=== PATIENT | male | born 1985 | race Caucasian/White ===

== ENCOUNTER 2017-02-11 16:53 | Inpatient (IN) | payer OTHER ==
[~2017-02-11] VITALS: Ht 167.6 cm; Wt 71.4 kg
[~2017-02-11 16:53] MED LIST: ACET-1257 PO; ALBUAER19 INH; DOCU-94 PO; ETOMIDATE 2 MG/ML 20 ML VIAL IV ONE; FEXO1TAB46 PO; FLUO10CA48 PO; FLUO20CA35 PO; FLUT44AE INH; IMD2X PO; MTHL PO; NRN600 PO
[2017-02-11] MEDS ORDERED: SODIUM CHLORIDE 0.9% 1000ML 1,000 ML IV STA ×2 (16:59)
[2017-02-11] MEDS ORDERED: RAPID SEQUENCE INDUCTION BAG ONE (17:03)
[2017-02-11] MEDS ORDERED: NALOXONE HCL 0.4 MG/1 ML VIAL/CARP ONE (17:08)
[2017-02-11] MEDS ORDERED: ONDANSETRON INJ 2 MG/ML 2 ML VIAL ONE (17:16)
[2017-02-11 17:17] LABS: BASO % 0.1 %; BASO ABS # 0.02 K/uL (0-0.2); COMPLETE YES; EOS % 0.2 %; HEMATOCRIT 36.3 % (42-52); IG% 0.4 %; LYMPH % 6.5 %; LYMPH ABS # 1.14 K/uL (1.2-3.4); MEAN CELL VOLUME 91.4 fL (80-100); MEAN CORPUSCULAR HEMOGLOBIN 31.7 pg (25-34); MEAN CORPUSCULAR HGB CONC 34.7 g/dl (32-36); MEAN PLATELET VOLUME 10.9 fL (7.4-10.4); MONO % 5.9 %; NEUT % 86.9 %; PLATELET COUNT 277 K/uL (130-400); RED BLOOD COUNT 3.97 M/uL (4.7-6.1); WHITE BLOOD COUNT 17.41 K/uL (4.8-10.8)
[2017-02-11 17:24] LABS: ISTAT CREATININE 0.8 mg/dl (0.6-1.3); ISTAT HEMOGLOBIN 13.3 g/dl (14.0-18.0); ISTAT IONIZED CALCIUM 1.18 mmol/l (1.12-1.32)
[2017-02-11] MEDS ORDERED: NURSING VERBAL MED ORDER ONE (17:30)
[2017-02-11] MEDS ORDERED: PXL/40 PO (17:34)
[2017-02-11] MEDS ORDERED: BUPR200T2 PO (17:34)
[2017-02-11] MEDS ORDERED: SRQ/50 PO (17:34)
--- NOTE | 2017-02-11 17:36 | DIAGNOSTIC IMAGING REPORT ---
CHEST ONE VIEW PORTABLE CLINICAL HISTORY: Overdose COMPARISON STUDY: 06/20/2014 FINDINGS: There is a poor inspiration. Prominence of interstitial markings may be secondary to hypoventilatory study. There is no focal pulmonary consolidation. There are no pleural effusions. There is no pneumothorax.[ IMPRESSION: 1. Suboptimal inspiration which may explain the prominence of the interstitial markings. No evidence of focal pulmonary consolidation Electronically signed by: Saud Mccoy M.D. 02/11/2017 5:35 PM Dictated Date/Time: 02/11/2017 5:34 PM
[2017-02-11 17:37] LABS: PARTIAL THROMBOPLASTIN RATIO 1.1; PROTHROMBIN TIME (PATIENT) 11.2 SECONDS (9.0-12.0)
[2017-02-11] MEDS ORDERED: METH10CO (17:37)
[2017-02-11] MEDS ORDERED: MTHL PO (17:37)
[2017-02-11 17:38] LABS: ALT/SGPT 32 U/L (12-78); BLOOD UREA NITROGEN 15 mg/dl (7-18); BUN/CREATININE RATIO 15.8 (10-20); CALCIUM 9.3 mg/dl (8.5-10.1); CARBON DIOXIDE 27 mmol/L (21-32); CHLORIDE 104 mmol/L (98-107); CREATININE 0.97 mg/dl (0.60-1.40); GLUCOSE 158 mg/dl (70-99); POTASSIUM 3.5 mmol/L (3.5-5.1); SODIUM 140 mmol/L (136-145)
[2017-02-11] MEDS ORDERED: DICY10CA12 PO (17:41)
[2017-02-11] MEDS ORDERED: OXYB5TAB74 PO (17:41)
[2017-02-11] MEDS ORDERED: FLUT0.15 NAE (17:42)
[2017-02-11] MEDS ORDERED: VNTHFA/IN INH (17:42)
[2017-02-11] MEDS ORDERED: IBUP-1459 PO (17:42)
[2017-02-11 17:43] LABS: ALKALINE PHOSPHATASE 139 U/L (45-117); AST/SGOT 30 U/L (15-37)
[2017-02-11 17:44] LABS: ACETAMINOPHEN < 2 ug/ml (10-30)
[2017-02-11] MEDS ORDERED: NALOXONE HCL 0.4 MG/1 ML VIAL/CARP IV PRN (17:45)
--- NOTE | 2017-02-11 18:05 | DIAGNOSTIC IMAGING REPORT ---
HEAD WITHOUT CONTRAST (CT) CLINICAL HISTORY: 31 years-old Male presenting with AMS. TECHNIQUE: Multidetector CT imaging of the head was performed without the use of intravenous contrast. IV contrast: None. A dose lowering technique was used consistent with the principles of ALARA (as low as reasonably achievable). COMPARISON: 11/29/2007. CT DOSE (mGy.cm): The estimated cumulative dose is 1006.[address] C-spine. FINDINGS: Chemical Educator topogram: Unremarkable. Ventricles and sulci normal in size. Brain parenchyma normal in appearance with preserved mena-white differentiation. No mass effect or midline shift. No hemorrhage or acute territorial infarct. No extra-axial fluid collection. Paranasal sinuses and mastoid air cells clear. Calvarium intact. IMPRESSION: 1. No acute intracranial pathology. Electronically signed by: Ozzy Michelle M.D. 02/11/2017 6:03 PM Dictated Date/Time: 02/11/2017 6:01 PM
--- NOTE | 2017-02-11 18:06 | DIAGNOSTIC IMAGING REPORT ---
CT OF THE CERVICAL SPINE CLINICAL HISTORY: Neck pain. Overdose. Change in mental status. COMPARISON STUDY: 08/05/2007 CT DOSE: 1006.55 mGy.cm TECHNIQUE: CT scan of the cervical spine was performed from the skull base to the thoracic inlet. Images are reviewed in the axial, sagittal, and coronal planes. IV contrast was not administered for this examination. A dose lowering technique was utilized adhering to the principles of ALARA. FINDINGS: The visualized portions of the lung apices reveal no evidence of pneumothorax. The prevertebral soft tissues are normal. No fractures or subluxations are visualized. There are subtle ill-defined nodular opacities within the left lung apex, likely inflammatory/postinflammatory. IMPRESSION: 1. No evidence of acute fracture or traumatic subluxation 2. Subtle ill-defined nodular opacities within the left lung apex likely inflammatory/postinflammatory Electronically signed by: Saud Mccoy M.D. 02/11/2017 6:05 PM Dictated Date/Time: 02/11/2017 6:01 PM
--- NOTE | 2017-02-11 18:10 | Pharmacy Progress Note ---
ED Pharmacist Progress Note Date of Service: Feb 11, 2017. Contacted Poison Control Center and presented patient's case. I had requested that their recommendations be forwarded to us via fax ). pupil personnel worker had recommended 12-24 hours observation. Supportive care with IVF's and PRN small dose Naloxone recommended at this time. Observe patient closely for delayed seizure activity with Wellbutrin SR and Seroquel. If seizures present, recommend treatment w/ benzodiazepines. Sales Contracts Analyst is available for specific questions related to treatment.
[2017-02-11] MEDS ORDERED: NALOXONE HCL INJ 5 MG in SODIUM CHLORIDE 0.9% 100ML 100 ML IV PRN ×2 (18:11→20:30)
[2017-02-11] MEDS ORDERED: VANCOMYCIN INJ 1,500 MG in SODIUM CHLORIDE 0.9% 500ML 500 ML IV STA (18:16)
[2017-02-11] MEDS ORDERED: PIPERACILLIN/TAZOBACTAM 4.5 GM/100ML D5W IV STA (18:16)
[2017-02-11] MEDS ORDERED: AMPICILLIN/SULBACTAM SOD INJ 3,000 MG in SODIUM CHLORIDE 0.9% 100ML 100 ML IV ONE (19:00)
[2017-02-11] MEDS ORDERED: LACTATED RINGER'S 1000ML 1,000 ML IV SCH ×2 (19:45→20:30)
[2017-02-11 20:03] LABS: MAGNESIUM 2.1 mg/dl (1.8-2.4); THYROID STIMULATING HORMONE 1.21 uIu/ml (0.300-4.500)
--- NOTE | 2017-02-11 20:08 | EMERGENCY ROOM VISIT NOTE ---
History Report prepared by Suyapa: Maude Kim Under the Supervision of: Dr. Konstantin Boyle M.D. First contact with patient: 16:59 Chief Complaint: OVERDOSE (ACCIDENTAL) Stated Complaint: SEMI RESPONSIVE, OVERDOSE History of Present Illness The patient is a 31 year old male who presents to the Emergency Room with complaints of a possible overdose. The patient was brought to the ED via EMS. EMS reports his Mother left their home sometime in the morning and when she returned home around 1600, she found him un-responsive on the floor, with blood on his lips, next to an empty Neurontin bottle. The bottle had been filled in December with 90 pills. The patient has a history of drug addiction and is currently taking daily Methadone. His end tidal CO2 was 20 pre-hospital. He is responsive to loud verbal stimuli. The patients other daily medications include Prozac and Gabapentin. He denies any suicidal or homicidal ideations currently. He denies any pain currently. History is limited secondary to mental status. Source of History: family, EMS History Limited By: intoxication Onset: PHOTO CHECKER Position: other (global) Timing: constant Review of Systems Limited secondary to mental status. 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 Family History Depression Psychiatric condition Social History Smoking Status: Unknown if Ever Smoked Alcohol Use: occasionally Drug Use: other (benzodiazepene addiction) Marital Status: Housing Status: lives with family Occupation Status: unemployed Current/Historical Medications Scheduled Albuterol Hfa (Ventolin Hfa), 2-4 PUFFS INH QID Bupropion Hcl (Wellbutrin Sr), 200 MG PO QAM Fluticasone Propionate (Nasal) (Flonase Allergy Relief), 2 SPRAYS RUBI DAILY Gabapentin (Gabapentin), 600 MG PO TID Methadone HCl (Methadone HCl), 120 ML PO DAILY Oxybutynin Chloride (Ditropan), 5 MG PO TID Paroxetine (Paxil), 40 MG PO DAILY Quetiapine Fumarate (Seroquel), 50 MG PO BID Scheduled PRN Dicyclomine Hcl (Dicyclomine Hcl), 10 MG PO QID PRN for GI Upset Ibuprofen (Motrin), 400 MG PO TID PRN for Pain Allergies Coded Allergies: No Known Allergies (Verified , 10/15/12) Physical Exam Vital Signs Date Time Temp Pulse Resp B/P (MAP) Pulse Ox O2 Delivery O2 Flow Rate FiO2 02/11/17 19:35 37.1 84 16 97 Nasal Cannula 02/11/17 19:31 108/65 02/11/17 19:30 84 11 97 Nasal Cannula 02/11/17 19:25 86 11 98 Nasal Cannula 4.0 02/11/17 19:21 109/68 02/11/17 19:20 89 8 100 Nasal Cannula 4.0 02/11/17 19:16 114/73 02/11/17 19:15 94 14 100 Nasal Cannula 4.0 02/11/17 19:11 141/98 02/11/17 19:10 102 24 100 Nasal Cannula 02/11/17 19:06 146/95 02/11/17 19:05 109 23 98 Nasal Cannula 4.0 02/11/17 19:00 112 18 137/93 98 Nasal Cannula 4.0 02/11/17 18:56 127/95 02/11/17 18:55 107 23 100 Nasal Cannula 4.0 02/11/17 18:50 109 20 96 Nasal Cannula 4.0 02/11/17 18:45 122 19 96 Nasal Cannula 02/11/17 18:41 132/82 02/11/17 18:40 96 16 100 Nasal Cannula 4.0 02/11/17 18:36 126/79 02/11/17 18:35 95 10 100 02/11/17 18:35 108 22 126/79 100 Nasal Cannula 4.0 02/11/17 18:31 96 14 130/91 98 Nasal Cannula 4.0 02/11/17 18:24 108 18 134/90 99 Nasal Cannula 4.0 02/11/17 18:10 95 18 133/86 99 Nasal Cannula 4.0 02/11/17 18:02 102 18 150/96 98 Nasal Cannula 4.0 02/11/17 18:01 99 4.0 02/11/17 17:41 108 18 135/95 100 Nasal Cannula 4.0 02/11/17 17:35 110 22 138/96 99 Nasal Cannula 4.0 02/11/17 17:31 106 20 146/91 100 Nasal Cannula 4.0 02/11/17 17:25 102 14 149/103 99 Nasal Cannula 4.0 02/11/17 17:20 105 14 145/98 94 Nasal Cannula 4.0 02/11/17 17:15 110 20 153/95 95 Nasal Cannula 4.0 02/11/17 17:06 102 17 148/90 100 Nasal Cannula 4.0 02/11/17 16:59 98 02/11/17 16:56 Nasal Cannula 4.0 02/11/17 16:56 Nasal Cannula 4.0 02/11/17 16:56 102 20 131/99 14 Nasal Cannula 4.0 Physical Exam GENERAL: The patient appears lethargic and semi-responsive. HENT: Normocephalic, atraumatic. Right upper and right lower lip with dried blood. TM's clear bilaterally. EYES: Pupils 6 mm and reactive. Scattered petechiae around the eyes. Normal conjunctiva. Sclera non-icteric. NECK: Supple. No nuchal rigidity. FROM. No JVD. RESPIRATORY: Clear to auscultation. CARDIAC: Tachycardic heart rate, normal rhythm. Extremities warm and well perfused. Pulses equal. ABDOMEN: Soft, non-distended. No tenderness to palpation. No rebound or guarding. No masses. RECTAL: Deferred. MUSCULOSKELETAL: Chest examination reveals no tenderness. The back is symmetrical on inspection without obvious abnormality. There is no CVA tenderness to palpation. No joint edema. LOWER EXTREMITIES: Diminished DTR in lower extremities. No hyperreflexia, no clonus. Calves are equal size bilaterally and non-tender. No edema. No discoloration. NEURO: Normal sensorium. No sensory or motor deficits noted. SKIN: No rash or jaundice noted. Medical Decision & Procedures ER Provider Diagnostic Interpretation: Radiology results as stated below per my review and radiologist interpretation: CT OF THE CERVICAL SPINE CLINICAL HISTORY: Neck pain. Overdose. Change in mental status. COMPARISON STUDY: 08/05/2007 CT DOSE: 1006.55 mGy.cm TECHNIQUE: CT scan of the cervical spine was performed from the skull base to the thoracic inlet. Images are reviewed in the axial, sagittal, and coronal planes. IV contrast was not administered for this examination. A dose lowering technique was utilized adhering to the principles of ALARA. FINDINGS: The visualized portions of the lung apices reveal no evidence of pneumothorax. The prevertebral soft tissues are normal. No fractures or subluxations are visualized. There are subtle ill-defined nodular opacities within the left lung apex, likely inflammatory/postinflammatory. IMPRESSION: 1. No evidence of acute fracture or traumatic subluxation 2. Subtle ill-defined nodular opacities within the left lung apex likely inflammatory/postinflammatory Electronically signed by: Saud Mccoy M.D. 02/11/2017 6:05 PM HEAD WITHOUT CONTRAST (CT) CLINICAL HISTORY: 31 years-old Male presenting with AMS. TECHNIQUE: Multidetector CT imaging of the head was performed without the use of intravenous contrast. IV contrast: None. A dose lowering technique was used consistent with the principles of ALARA (as low as reasonably achievable). COMPARISON: 11/29/2007. CT DOSE (mGy.cm): The estimated cumulative dose is 1006.[address] C-spine. FINDINGS: Field Placement Director topogram: Unremarkable. Ventricles and sulci normal in size. Brain parenchyma normal in appearance with preserved mena-white differentiation. No mass effect or midline shift. No hemorrhage or acute territorial infarct. No extra-axial fluid collection. Paranasal sinuses and mastoid air cells clear. Calvarium intact. IMPRESSION: 1. No acute intracranial pathology. Electronically signed by: Ozzy Michelle M.D. 02/11/2017 6:03 PM CHEST ONE VIEW PORTABLE CLINICAL HISTORY: Overdose COMPARISON STUDY: 06/20/2014 FINDINGS: There is a poor inspiration. Prominence of interstitial markings may be secondary to hypoventilatory study. There is no focal pulmonary consolidation. There are no pleural effusions. There is no pneumothorax.[ IMPRESSION: 1. Suboptimal inspiration which may explain the prominence of the interstitial markings. No evidence of focal pulmonary consolidation Electronically signed by: Saud Mccoy M.D. 02/11/2017 5:35 PM Laboratory Results 02/11/17 16:51 Red Blood Count 3.97, Mean Corpuscular Volume 91.4, Mean Corpuscular Hemoglobin 31.7, Mean Corpuscular Hemoglobin Concent 34.7, Mean Platelet Volume 10.9, Neutrophils (%) (Auto) 86.9, Lymphocytes (%) (Auto) 6.5, Monocytes (%) (Auto) 5.9, Eosinophils (%) (Auto) 0.2, Basophils (%) (Auto) 0.1, Neutrophils # (Auto) 15.12, Lymphocytes # (Auto) 1.14, Monocytes # (Auto) 1.02, Eosinophils # (Auto) 0.04, Basophils # (Auto) 0.02 02/11/17 16:51 Test 02/11/17 16:51 02/11/17 16:59 02/11/17 17:03 02/11/17 17:10 White Blood Count 17.41 K/uL (4.8-10.8) Red Blood Count 3.97 M/uL (4.7-6.1) Hemoglobin 12.6 g/dL (14.0-18.0) Hematocrit 36.3 % (42-52) Mean Corpuscular Volume 91.4 fL (80-100) Mean Corpuscular Hemoglobin 31.7 pg (25-34) Mean Corpuscular Hemoglobin Concent 34.7 g/dl (32-36) Platelet Count 277 K/uL (130-400) Mean Platelet Volume 10.9 fL (7.4-10.4) Neutrophils (%) (Auto) 86.9 % Lymphocytes (%) (Auto) 6.5 % Monocytes (%) (Auto) 5.9 % Eosinophils (%) (Auto) 0.2 % Basophils (%) (Auto) 0.1 % Neutrophils # (Auto) 15.12 K/uL (1.4-6.5) Lymphocytes # (Auto) 1.14 K/uL (1.2-3.4) Monocytes # (Auto) 1.02 K/uL (0.11-0.59) Eosinophils # (Auto) 0.04 K/uL (0-0.5) Basophils # (Auto) 0.02 K/uL (0-0.2) RDW Standard Deviation 44.1 fL (36.4-46.3) RDW Coefficient of Variation 13.3 % (11.5-14.5) Immature Granulocyte % (Auto) 0.4 % Immature Granulocyte # (Auto) 0.07 K/uL (0.00-0.02) Prothrombin Time 11.2 SECONDS (9.0-12.0) Prothromb Time International Ratio 1.0 (0.9-1.1) Activated Partial Thromboplast Time 29.1 SECONDS (21.0-31.0) Partial Thromboplastin Ratio 1.1 Estimated GFR () 119.2 Estimated GFR (Non- 102.9 BUN/Creatinine Ratio 15.8 (10-20) Osmolality 294 mOsm/kg (280-300) Calcium Level 9.3 mg/dl (8.5-10.1) Total Bilirubin 0.4 mg/dl (0.2-1) Direct Bilirubin < 0.1 mg/dl (0-0.2) Aspartate Amino Transf (AST/SGOT) 30 U/L (15-37) Alanine Aminotransferase (ALT/SGPT) 32 U/L (12-78) Alkaline Phosphatase 139 U/L (45-117) Total Creatine Kinase 270 U/L (39-308) Troponin I < 0.015 ng/ml (0-0.045) Total Protein 8.2 gm/dl (6.4-8.2) Albumin 4.0 gm/dl (3.4-5.0) Lipase 80 U/L (73-393) Salicylates Level < 1.7 mg/dl (2.8-20) Acetaminophen Level < 2 ug/ml (10-30) Ethyl Alcohol mg/dL < 3.0 mg/dl (0-3) Bedside Hemoglobin 13.3 g/dl (14.0-18.0) Bedside Hematocrit 39 % (42-52) Bedside Sodium 142 mEq/L (135-144) Bedside Potassium 3.8 mEq/L (3.3-5.0) Bedside Chloride 104 mEq/L (101-112) Bedside Total CO2 25 mEq/l (24-31) Anion Gap 18.0 mmol/L (16-25) Bedside Blood Urea Nitrogen 16 mg/dl (7-18) Bedside Creatinine 0.8 mg/dl (0.6-1.3) Bedside Glucose (other) 158 mg/dl (70-99) Bedside Ionized Calcium (Isaiah) 1.18 mmol/l (1.12-1.32) Test 02/11/17 17:11 02/11/17 19:35 Bedside Glucose 129 mg/dl (70-99) Laboratory results reviewed by me Medications Administered Medications (Trade) Dose Ordered Sig/Marcelino Route Start Time Stop Time Status Last Admin Dose Admin Sodium Chloride 1,000 ml @ 999 mls/hr Q1H1M STAT IV 02/11/17 16:59 02/11/17 17:59 DC 02/11/17 17:18 999 MLS/HR Sodium Chloride 1,000 ml @ 200 mls/hr Q5H STAT IV 02/11/17 16:59 02/11/17 19:38 DC 02/11/17 16:59 200 MLS/HR Naloxone HCl (Narcan Inj) 0.4 mg STK-MED ONCE .ROUTE 02/11/17 17:08 02/11/17 17:09 DC 02/11/17 17:27 0.4 MG Ondansetron HCl (Zofran Inj) 4 mg STK-MED ONCE .ROUTE 02/11/17 17:16 02/11/17 17:17 DC 02/11/17 17:19 4 MG Naloxone HCl (Narcan Inj) 0.04 mg PRN PRN IV 02/11/17 17:45 03/13/17 17:44 02/11/17 17:39 0.04 MG Naloxone HCl 5 mg/ Sodium Chloride 112.5 ml @ 0 mls/hr Q0M PRN IV 02/11/17 18:11 03/13/17 18:10 02/11/17 18:43 0.8 MLS/HR Vancomycin HCl 1500 mg/Sodium Chloride 530 ml @ 200 mls/hr ONE STAT IV 02/11/17 18:16 02/11/17 20:54 02/11/17 18:55 200 MLS/HR Ampicillin Sodium/ Sulbactam Sodium 3000 mg/Sodium Chloride 108 ml @ 216 mls/hr ONE ONCE IV 02/11/17 19:00 02/11/17 19:29 DC 02/11/17 19:33 216 MLS/HR ECG Indication: toxicologic Rate (beats per minute): 93 Rhythm: normal sinus Findings: nonspecific-ST abn, other (QRS is 90, QTC is 422) ED Course 165: NSS 1000 ml @ 200 mls/hr IV, NSS 1000 ml @ 999 mls/hr IV. 170: The patient was evaluated in room A1. A complete history and physical exam was performed. 1708: Narcan 0.4 mg IV. 1712: Narcan 0.4 mg IV. 1713: I-stat reveals normal chemistry's. 1715: After the second dose of 40 micrograms of IV Narcan, the patients mental status improved. He is awake, confused, but answering basic questions. 1716: Zofran 4 mg IV. 1745: Narcan 0.4 mg IV. 1748: I reevaluated the patient. He is resting but more alert. 1815: Vancomycin HCl 1500 mg/NSS 530 ml @ 200 mls/hr IV, Zosyn 4.5 gm IV. 1810: Naloxone HCl 5 mg/NSS 112.5 ml @ 0 mls/hr IV. 1817: I discussed the patients case with Dr. Hoang, [facility] Toxicology. He agrees with a low dose Narcan drip, and monitoring the patients airway. If he becomes noncholinergic, try a benzodiazepine. If he is still agitated after a benzo, then start treatment with a physostigmine. 1839: I reevaluated patient. His mental status is stable on the Narcan drip. He is still confused and appears anti-cholinergic. 1842: I reevaluated the patient. His Mother has arrived and is at the bedside. She states he was normal at 1000 this morning and notes the patient has been taking Augmentin for a dental infection for the past few days. 1899: Ampicillin Sodium/Sulbactam Sodium 3000 mg/Sodium Chloride 108 ml @ 216 mls/hr IV. 1919: I discussed the patients case with Dr. Kelley, [facility] Hospitalist. The patient will be further evaluated. Medical Decision Prior records/ancillary studies reviewed. Triage Nursing notes reviewed and agree them. Additional history obtained from EMS and the family. The patient's history was concerning for altered mental status and probable overdose. Differential diagnosis: Etiologies such as toxicologic, infection, hypoglycemia, electrolyte abnormalities, cardiac sources, intracerebral event, neurologic, as well as others were entertained. Physical examination: The patient had altered sensorium. Bight oleary to the right lips No other trauma noted. ER treatment provided: IV NSS 1 L bolus IV hydration NSS 200 mL/hr IV Zofran was given 1 as the patient was briefly nauseated after the first dose of Narcan Elevation of head of bed Narcan 40 g boluses PRN due to depressed mental status and respirations with improvement IV Unasyn and IV vancomycin Narcan drip Diagnostic interpretation by me: The electrocardiogram was negative for pathologic change. There was no QRS widening or interval prolongation. The labs revealed a moderate leukocytosis of 17,000. Chemistry panel was unremarkable. LFTs were unremarkable. His Tylenol, salicylate, and alcohol levels were negative. UDS and urinalysis are pending. Blood cultures done. The patient has normal CK and troponin. Renal function normal. Imaging studies: X-ray and CT scans as above. Lung apices were concerning for infectious/ inflammatory findings. The patient presented after what appears to be an overdose. An empty bottle of recently filled gabapentin was present. Family notes that he had some blood on the floor and there was a bite lorie to the lip on the right side, upper and lower. Medication lists were obtained from his primary electronic medical record. He has numerous medications that can result in different toxidromes. He is on several anticholinergic medications. The patient is on a significant dose of methadone. The gabapentin may potentiate the methadone effects. He had no interval prolongation or QRS widening. The patient's mental status improved well enough when the Narcan was given. He was given very small doses as not to precipitate withdrawal. Because of the recurrent need for small doses of Narcan a Narcan drip was initiated at 40 mcg/h and then this was titrated. With the above intervention he was doing well to protect his airway. Consultation: A consultation was placed with Dr. Hoang [facility] toxicology. The case was discussed in detail. He agreed with the Narcan drip and likely poly-pharmacy overdose resulting in anticholinergic findings and an opioid toxidrome. Wellbutrin on his med list could explain the suspected seizure. He did recommend benzodiazepines for any seizure activity or anticholinergic agitation if present. He also noted that the patient may be challenging to monitor is intubated due to the list for seizures and his intubation may be extubation may be challenging due to the multiple toxidromes.A consultation was placed with the [facility] hospitalist. The case was discussed and diagnostics were reviewed. The patient was evaluated in the ER for further treatment. Medication Reconcilliation Current Medication List: was personally reviewed by ar Blood Pressure Screening Patient's blood pressure: Normal blood pressure Blood pressure disposition: Did not require urgent referral Consults Time Called: 1811 Consulting Physician: Dr. Hoang [facility] Returned Call: [phone] I discussed the patients case with Dr. Hoang [facility]. I discussed the patients case with Dr. Hoang [facility]. He agrees with a low dose Narcan drip, and monitoring the patients airway. If he becomes noncholinergic, try a benzodiazepine. If he is still agitated after a benzo, then start treatment with a physostigmine. Additional Consults: Time Called: 1904 Consulted Physician: Andriy Perales Hospitalist Returned Call: 1919 Additional Comments: I discussed the patients case with Andriy Perales. The patient will be further evaluated. Impression Primary Impression: Toxic encephalopathy Additional Impression: Overdose Critical Care I have personally spent greater than 75 minutes of critical care time in the direct management of this patient. This includes bedside care, interpretation of diagnostic studies, and testing, discussion with consultants, patient, and family members, and other required patient management activities. This 75 minutes is in excess of all separately billable procedures. Scribe Attestation The scribe's documentation has been prepared under my direction and personally reviewed by me in its entirety. I confirm that the note above accurately reflects all work, treatment, procedures, and medical decision making performed by me. Departure Information Dispostion Being Evaluated By Hospitalist Referrals Piedad Breen D.O. (PCP) Patient Instructions My [facility] Problem Qualifiers
[2017-02-11 20:29] LABS: ALLEN TEST POS (POS); ARTERIAL BLD GAS O2 SATURATION 90.2 % (90-95); ARTERIAL BLOOD GAS BASE EXCESS -0.9 mEq/L (-9-1.8); ARTERIAL BLOOD GAS HCO3 26 mmol/L (19-24); ARTERIAL BLOOD GAS PO2 70 mm/Hg (80-95); ARTERIAL BLOOD GAS pH 7.31 (7.35-7.45); O2 ADMINISTRATION 4L O2
[2017-02-11 20:30] VITALS: BP_SYST 135; BP_SYST 140; BP_DIAS 80; PULSE 104; PULSE 95; TEMP 36.8; O2SAT 93; O2SAT 97; Ht 167.6 cm; Wt 71.4 kg
[2017-02-11] MEDS ORDERED: IBUPROFEN 200 MG TAB PO PRN (20:30)
[2017-02-11] MEDS ORDERED: ACETAMINOPHEN IV 650 MG in EMPTY BAG 0 ML IV PRN (20:30)
[2017-02-11] MEDS ORDERED: KETOROLAC TROMETHAMINE 30 MG/ML VIAL IV PRN (20:30)
[2017-02-11] MEDS ORDERED: OXYCODONE/ACETAMINOPHEN 5-325 TAB PO PRN (20:30)
[2017-02-11] MEDS ORDERED: ACETAMINOPHEN 325 MG TAB PO PRN (20:30)
[2017-02-11] MEDS ORDERED: ONDANSETRON INJ 2 MG/ML 2 ML VIAL IV PRN (20:30)
[2017-02-12] VITALS (9 sets, daily range): BP systolic 103–129; BP diastolic 54–84; PULSE 72–107; TEMP 36.6–37.4; O2SAT 93–100
[2017-02-12 00:18] LABS: URINE APPEARANCE CLEAR (CLEAR); URINE BILIRUBIN NEG (NEG); URINE COLOR DK YELLOW; URINE NITRITE NEG (NEG); URINE SPECIFIC GRAVITY 1.021 (1.000-1.030); UROBILINOGEN NEG (NEG)
[2017-02-12 00:20] LABS: MANUAL MICROSCOPIC REQUIRED? NO; REVIEW REQ? NO
[2017-02-12] MEDS ORDERED: LEVALBUTEROL/IPRATROPIUM NEB INH STA (00:41)
[2017-02-12] MEDS ORDERED: IPRATROPIUM BROMIDE NEB SOLN 0.02% 2.5 ML VIAL INH STA (00:42)
[2017-02-12] MEDS ORDERED: LEVALBUTEROL 1.25MG/0.5ML NEB INH STA (00:42)
[2017-02-12] MEDS ORDERED: LEVALBUTEROL/IPRATROPIUM NEB INH PRN (00:45)
[2017-02-12] MEDS ORDERED: LEVALBUTEROL 1.25MG/0.5ML NEB INH PRN (00:45)
[2017-02-12] MEDS ORDERED: IPRATROPIUM BROMIDE NEB SOLN 0.02% 2.5 ML VIAL INH PRN (00:45)
[2017-02-12 00:48] LABS: BENZODIAZEPINE, URINE NEG (NEG); COCAINE,URINE NEG (NEG); PHENCYCLIDINE, URINE NEG (NEG)
[2017-02-12] MEDS ORDERED: LACTATED RINGER'S 1000ML 1,000 ML IV SCH (02:00)
[2017-02-12] MEDS ORDERED: LORAZEPAM INJ 1 MG in SYRINGE 0.5 ML IV PRN (02:00)
[2017-02-12] MEDS ORDERED: METHYLPREDNISOLONE IV 20 MG in SYRINGE 0 ML IV ONE (02:45)
[2017-02-12] MEDS ORDERED: PROMETHAZINE HCL INJ 12.5 MG in SODIUM CHLORIDE 0.9% 50ML 50 ML IV PRN (03:00)
--- NOTE | 2017-02-12 03:36 | HISTORY & PHYSICAL EXAMINATION ---
DATE OF ADMISSION: 02/11/2017 PRIMARY CARE DOCTOR: Dr. Piedad Breen. CHIEF COMPLAINT: Possible overdose as per records. HISTORY OF PRESENT ILLNESS: History obtained from the patient's mother, ER physician, records. Unable to obtain from patient secondary to obtunded state. Medical history significant for mood disorder, ADHD, anxiety disorder, hx substance abuse/drug dependence as per records, asthma, hx avascular necrosis as per records, chronic anemia (baseline hemoglobin 13). Recent confinement in September 2014 for benzo withdrawal. Recommendation was to taper off methadone. [facility] Patient seen at PCP's office a few days ago for tooth pain on the right side. Impression was dental infection. The patient prescribed penicillin and ibuprofen. Patient's mother left the patient in a well state at home this morning to go to work. When she came back in the afternoon, she found the patient on the floor, bleeding from the mouth, possibly bit tongue, Minimally responsive but responds to loud verbal stimulation. Empty bottle of Neurontin noted on the floor. At the Emergency Room, some response to Narcan, Narcan drip started. Patient also received vancomycin and Unasyn in the ER w/ incidental note of infiltrates on lung apex on CT neck imaging. Patient's mother unaware of any current personal or chronic pain issues. As per patient's mom, she knows her son takes methadone for some "trouble in his head". She would like him to get off his many medications. MEDICAL HISTORY: As above. SURGERIES: Hip surgery. HOME MEDICATIONS: Include Ventolin, Wellbutrin, dicyclomine, Flonase, ibuprofen, methadone, Ditropan, Paxil, Seroquel. ALLERGIES: No known drug allergies. FAMILY HISTORY: Depression. PERSONAL AND SOCIAL HISTORY: Past tobacco and alcohol abuse, currently disabled. REVIEW OF SYSTEMS: Could not be obtained. PHYSICAL EXAMINATION: VITAL SIGNS: Blood pressure noted to be 131/99, pulse rate 110, RR 16, temperature 37.9, sats 95 on 4 liters. GENERAL: Noted to be obtunded. No respiratory distress. SKIN: Pallor. HEENT: Pale palpebral conjunctivae. Dry mucosa. Nasal cannula in place. NECK: No JVD. Supple. CHEST: Decreased effort. HEART: Tachycardic. ABDOMEN: Soft. EXTREMITIES: No edema, no tenderness. NEUROLOGIC: Obtunded, miotic pupils. LABORATORY DATA: Hemoglobin was noted to be 12.6, hematocrit 38.3, white cell count 17.4, platelets 277. Sodium noted to be 140, potassium 3.5, chloride 104, CO2 of 27, BUN 15, creatinine 0.9, glucose was noted to be 158. ABG; pH 7.39, pCO2 of 52, pO2 of 70 on 4 liters. Urine tox positive for methadone and ecstasy. Alcohol level was less than 3. Chest x-ray, interstitial markings, possibility of hypoventilation. CT of the cervical spine, no evidence of fracture or subluxation, ill-defined nodular opacities, left lung apex post-inflammatory. CT of the head, no acute intracranial pathology. ASSESSMENT: 1. Encephalopathy multifactorial : drug overdose (w/ likely polysubstance interaction), unknown intent. Acute hypoxemic respiratory failure possibly from aspiration pneumonitis. Possible sepsis Rule out seizures with oral bleeding/possible tongue trauma noted. 2. Chronic anemia, hemoglobin at baseline. 3. History of substance abuse/drug dependence as per records 4. ADD as per records 5. hx mood DSO/anxiety DSO. Unknown status. 6. past tobacco abuse. PLAN: PCU Hold neuropsychotropics for now. Narcan drip as per Toxicology recommendations. Review other Toxicology recommendations. May need Psych eval for drug overdose. supplemental O2. Cultures.Unasyn. IV Solu-Medrol for 1 dose now, may benefit from additional steroid Nebs RTC, p.r.n. EEG RE possible seizures, seizure precautions, Ativan when necessary, may need Neurology input TTE RE unwitnessed fall, possible syncope DVT prophylaxis, SCDs re oral trauma. Full code as per mother. She wants her son to be taken off multiple medications at some point due to potential harm. She requests updates from providers. ( Kati Bing Currie at [phone]) [facility]
[2017-02-12] MEDS ORDERED: LORAZEPAM 2 MG/ML 1 ML VIAL IV PRN (03:45)
[2017-02-12] MEDS: AMPICILLIN/SULBACTAM SOD INJ 3,000 MG in SODIUM CHLORIDE 0.9% 100ML 100 ML IV SCH ×4 (05:12→23:02)
[2017-02-12 06:36] LABS: BASO % 0.1 %; BASO ABS # 0.01 K/uL (0-0.2); COMPLETE YES; HEMATOCRIT 32.3 % (42-52); IG% 0.3 %; LYMPH % 5.7 %; LYMPH ABS # 0.67 K/uL (1.2-3.4); MEAN CELL VOLUME 92.6 fL (80-100); MEAN CORPUSCULAR HEMOGLOBIN 30.4 pg (25-34); MEAN CORPUSCULAR HGB CONC 32.8 g/dl (32-36); MEAN PLATELET VOLUME 10.8 fL (7.4-10.4); MONO % 2.7 %; NEUT % 91.2 %; PLATELET COUNT 250 K/uL (130-400); RED BLOOD COUNT 3.49 M/uL (4.7-6.1); WHITE BLOOD COUNT 11.79 K/uL (4.8-10.8)
[2017-02-12] MEDS: IPRATROPIUM BROMIDE NEB SOLN 0.02% 2.5 ML VIAL INH SCH ×4 (07:10→19:28)
[2017-02-12] MEDS: LEVALBUTEROL 1.25MG/0.5ML NEB INH SCH ×4 (07:10→19:28)
[2017-02-12 07:17] LABS: BUN/CREATININE RATIO 13.9 (10-20); CALCIUM 8.6 mg/dl (8.5-10.1); CREATININE 0.69 mg/dl (0.60-1.40); POTASSIUM 3.5 mmol/L (3.5-5.1)
[2017-02-12] MEDS ORDERED: LACTATED RINGER'S 1000ML 1,000 ML IV ONE (08:00)
[2017-02-12] MEDS: FLUTICASONE PROPIONATE NA SPR 16 GM BTL NAE SCH (08:06)
--- NOTE | 2017-02-12 08:57 | ECHOCARDIOGRAM REPORT ---
*NOTICE TO RECEIVING [employer]ENCY This information is strictly Confidential and protected under [place] law. [place] law prohibits you from making any further disclosure of this information unless further disclosure is expressly permitted by the written consent of the person to whom it pertains or is authorized by law. A general authorization for the release of medical or other information is not sufficient for this purpose. Hospital accepts no responsibility if the information is made available to any other person, INCLUDING THE PATIENT. Interpretation Summary * Name: KOLBY LING Study Date: 02/12/2017 07:28 AM BP: 115/73 mmHg * Patient Location: C.2E\S\E210\S\1 HR: 104 * : 1985 (M/d/yyyy) Gender: Male Height: 66 in * Age: 31 yrs Ethnicity: CA Weight: 164 lb * Ordering Physician: Radames Kelley * Referring Physician: Self, Referred * Performed By: Héctor Mckeon RCS * * Reason For Study: Syncope * BSA: 1.8 m2 * This was essentially a normal study. * All chambers of normal size and function * Normal bi-ventricular function * -- Conclusions -- * This was essentially a normal study. * All chambers of normal size and function * Normal bi-ventricular function * No significant valvualr pathology. Procedure Details * A complete two-dimensional transthoracic echocardiogram was performed (2D, M-mode, Doppler and color flow Doppler). Left Ventricle * The left ventricle is normal in size. * Ejection Fraction = >70 %. * Left ventricular systolic function is normal. Right Ventricle * The right ventricle is normal size. * The right ventricular systolic function is normal. Atria * The left atrial size is normal. * Right atrial size is normal. * The interatrial septum is intact with no evidence for an atrial septal defect. Mitral Valve * The mitral valve is normal in structure and function. Tricuspid Valve * The tricuspid valve is normal in structure and function. Aortic Valve * The aortic valve is normal in structure and function. Pulmonic Valve * The pulmonic valve is not well seen, but is grossly normal. * There is no significant pulmonary regurgitation. Great Vessels * The aortic root and proximal ascending aorta are normal sized. Pericardium/Pleural * There is no pericardial effusion. MMode 2D Measurements and Calculations IVSd 1.1 cm IVSs 1.2 cm LVIDd 3.2 cm LVIDs 1.8 cm LVPWd 0.97 cm LVPWs 1.2 cm IVS/LVPW 1.1 FS 44.0 % EDV(Teich) 42.4 ml ESV(Teich) 10.0 ml EF(Teich) 76.5 % EDV(cubed) 34.2 ml ESV(cubed) 6.0 ml EF(cubed) 82.4 % % IVS thick 8.9 % % LVPW thick 19.4 % LV mass(C)d 97.5 grams LV mass(C)dI 53.0 grams/m\S\2 LV mass(C)s 56.4 grams LV mass(C)sI 30.7 grams/m\S\2 SV(Teich) 32.4 ml SI(Teich) 17.6 ml/m\S\2 SV(cubed) 28.2 ml SI(cubed) 15.3 ml/m\S\2 Ao root diam 3.7 cm Ao root area 11.0 cm\S\2 ACS 1.8 cm LA dimension 2.9 cm asc Aorta Diam 2.9 cm LA/Ao 0.78 LVAd ap4 40.3 cm\S\2 LVLd ap4 8.9 cm EDV(MOD-sp4) 147.3 ml EDV(sp4-el) 155.2 ml LVAs ap4 20.2 cm\S\2 LVLs ap4 6.9 cm ESV(MOD-sp4) 51.5 ml ESV(sp4-el) 50.2 ml EF(MOD-sp4) 65.1 % EF(sp4-el) 67.7 % LVAd ap2 33.4 cm\S\2 LVLd ap2 9.1 cm EDV(MOD-sp2) 100.3 ml EDV(sp2-el) 104.1 ml LVAs ap2 15.8 cm\S\2 LVLs ap2 6.4 cm ESV(MOD-sp2) 33.4 ml ESV(sp2-el) 33.2 ml EF(MOD-sp2) 66.7 % EF(sp2-el) 68.0 % LVLd %diff 1.9 % EDV(MOD-bp) 123.3 ml LVLs %diff -7.45 % ESV(MOD-bp) 41.7 ml EF(MOD-bp) 66.1 % SV(MOD-sp4) 95.9 ml SI(MOD-sp4) 52.2 ml/m\S\2 SV(MOD-sp2) 66.9 ml SI(MOD-sp2) 36.4 ml/m\S\2 SV(MOD-bp) 81.5 ml SI(MOD-bp) 44.3 ml/m\S\2 SV(sp4-el) 105.0 ml SI(sp4-el) 57.1 ml/m\S\2 SV(sp2-el) 70.8 ml SI(sp2-el) 38.5 ml/m\S\2 Doppler Measurements and Calculations MV E max vale 131.3 cm/sec MV A max vale 119.4 cm/sec MV E/A 1.1 MV P1/2t max vale 141.5 cm/sec MV P1/2t 67.7 msec MVA(P1/2t) 3.3 cm\S\2 MV dec slope 612.3 cm/sec\S\2 MV dec time 0.26 sec Ao V2 max 164.9 cm/sec Ao max PG 10.9 mmHg Ao max PG (full) 1.7 mmHg LV V1 max PG 9.2 mmHg LV V1 max 151.5 cm/sec PA V2 max 149.5 cm/sec PA max PG 9.0 mmHg TR max vale 185.1 cm/sec
[2017-02-12] MEDS ORDERED: LEVALBUTEROL/IPRATROPIUM NEB INH SCH (09:00)
[2017-02-12] MEDS ORDERED: AMPICILLIN/SULBACTAM CONSULT ACTIVE PRN ×2 (09:00)
[2017-02-12] MEDS: LORAZEPAM 2 MG/ML 1 ML VIAL IV PRN (12:49)
--- NOTE | 2017-02-12 13:24 | Progress Note ---
Medicine Progress Note Date & Time of Visit: Feb 12, 2017 at 12:39. Subjective Pt was seen and examined Lying in bed with no distress Pt is very anxious because he received Narcan because he was unresponsive Pt seems very anxious when i told him that he was given Narcan Pt said that he has been taking phenibut to help him with the anxiety He said that he took a little bit more yesterday Pt said that his pcp and methadone clinic does not know if he is taking the phenibut I called [facility] and all his meds were refill on 01/17, except the oxybutynin that was refill on 02/01 Pt said that he received his methadone at [facility] Denies any chest pain, palpitation, dizziness and SOB Objective Last 8 Hrs Date Time Temp Pulse Resp B/P (MAP) Pulse Ox O2 Delivery O2 Flow Rate FiO2 02/12/17 12:00 Nasal Cannula 02/12/17 08:26 36.6 107 18 103/78 (86) 100 Nasal Cannula 4.0 02/12/17 08:00 Nasal Cannula 02/12/17 07:11 97 14 100 Nasal Cannula 4.0 Physical Exam: General- No acute distress, very anxious Head- atraumatic Eyes- PERRL, EOMI ENT- oropharynx clear Neck- supple, no JVD Lungs-No wheezing Heart- regular rhythm; no murmur Abdomen- normal bowel sounds, soft Extremities- no pretibial edema, no calf tenderness Neuro- alert, oriented x 3; PERRL, EOMI; no facial palsy; no dysarthria; motor 5 /5 bilaterally Skin- warm & dry Laboratory Results: Last 24 Hours Test 02/11/17 16:51 02/11/17 17:03 02/11/17 17:10 02/11/17 17:11 White Blood Count 17.41 K/uL Red Blood Count 3.97 M/uL Hemoglobin 12.6 g/dL Hematocrit 36.3 % Mean Corpuscular Volume 91.4 fL Mean Corpuscular Hemoglobin 31.7 pg Mean Corpuscular Hemoglobin Concent 34.7 g/dl Platelet Count 277 K/uL Mean Platelet Volume 10.9 fL Neutrophils (%) (Auto) 86.9 % Lymphocytes (%) (Auto) 6.5 % Monocytes (%) (Auto) 5.9 % Eosinophils (%) (Auto) 0.2 % Basophils (%) (Auto) 0.1 % Neutrophils # (Auto) 15.12 K/uL Lymphocytes # (Auto) 1.14 K/uL Monocytes # (Auto) 1.02 K/uL Eosinophils # (Auto) 0.04 K/uL Basophils # (Auto) 0.02 K/uL RDW Standard Deviation 44.1 fL RDW Coefficient of Variation 13.3 % Immature Granulocyte % (Auto) 0.4 % Immature Granulocyte # (Auto) 0.07 K/uL Prothrombin Time 11.2 SECONDS Prothromb Time International Ratio 1.0 Activated Partial Thromboplast Time 29.1 SECONDS Partial Thromboplastin Ratio 1.1 Sodium Level 140 mmol/L Potassium Level 3.5 mmol/L Chloride Level 104 mmol/L Carbon Dioxide Level 27 mmol/L Anion Gap 9.0 mmol/L 18.0 mmol/L Blood Urea Nitrogen 15 mg/dl Creatinine 0.97 mg/dl Estimated GFR () 119.2 Estimated GFR (Non- 102.9 BUN/Creatinine Ratio 15.8 Random Glucose 158 mg/dl Osmolality 294 mOsm/kg Calcium Level 9.3 mg/dl Total Bilirubin 0.4 mg/dl Direct Bilirubin < 0.1 mg/dl Aspartate Amino Transf (AST/SGOT) 30 U/L Alanine Aminotransferase (ALT/SGPT) 32 U/L Alkaline Phosphatase 139 U/L Total Creatine Kinase 270 U/L Troponin I < 0.015 ng/ml Total Protein 8.2 gm/dl Albumin 4.0 gm/dl Lipase 80 U/L Procalcitonin 0.10 ng/ml Salicylates Level < 1.7 mg/dl Acetaminophen Level < 2 ug/ml Magnesium Level 2.1 mg/dl Thyroid Stimulating Hormone (TSH) 1.210 uIu/ml Ethyl Alcohol mg/dL < 3.0 mg/dl Bedside Hemoglobin 13.3 g/dl Bedside Hematocrit 39 % Bedside Sodium 142 mEq/L Bedside Potassium 3.8 mEq/L Bedside Chloride 104 mEq/L Bedside Total CO2 25 mEq/l Bedside Blood Urea Nitrogen 16 mg/dl Bedside Creatinine 0.8 mg/dl Bedside Glucose (other) 158 mg/dl Bedside Ionized Calcium (Isaiah) 1.18 mmol/l Bedside Glucose 129 mg/dl Test 02/11/17 20:09 02/12/17 00:00 02/12/17 05:48 Arterial Blood pH 7.31 Arterial Blood Partial Pressure CO2 52 mmHg Arterial Blood Partial Pressure O2 70 mm/Hg Arterial Blood HCO3 26 mmol/L Arterial Blood Oxygen Saturation 90.2 % Arterial Blood Base Excess -0.9 mEq/L Arterial Blood Gas Delivery 4L O2 [place] Test POS Lactic Acid Level 0.5 mmol/L Urine Color DK YELLOW Urine Appearance CLEAR Urine pH 5.0 Urine Specific [place] 1.021 Urine Protein NEG Urine Glucose (UA) NEG Urine Ketones NEG Urine Occult Blood NEG Urine Nitrite NEG Urine Bilirubin NEG Urine Urobilinogen NEG Urine Leukocyte Esterase NEG Urine Opiates Screen NEG Urine Methadone, Qualitative POS Urine Barbiturates NEG Urine Phencyclidine (PCP) Level NEG Ur Amphetamine/Methamphetamine NEG MDMA (Ecstasy) Screen POS Urine Benzodiazepines Screen NEG Urine Cocaine Metabolite NEG Urine Marijuana (THC) NEG White Blood Count 11.79 K/uL Red Blood Count 3.49 M/uL Hemoglobin 10.6 g/dL Hematocrit 32.3 % Mean Corpuscular Volume 92.6 fL Mean Corpuscular Hemoglobin 30.4 pg Mean Corpuscular Hemoglobin Concent 32.8 g/dl Platelet Count 250 K/uL Mean Platelet Volume 10.8 fL Neutrophils (%) (Auto) 91.2 % Lymphocytes (%) (Auto) 5.7 % Monocytes (%) (Auto) 2.7 % Eosinophils (%) (Auto) 0.0 % Basophils (%) (Auto) 0.1 % Neutrophils # (Auto) 10.76 K/uL Lymphocytes # (Auto) 0.67 K/uL Monocytes # (Auto) 0.32 K/uL Eosinophils # (Auto) 0.00 K/uL Basophils # (Auto) 0.01 K/uL RDW Standard Deviation 44.6 fL RDW Coefficient of Variation 13.2 % Immature Granulocyte % (Auto) 0.3 % Immature Granulocyte # (Auto) 0.03 K/uL Sodium Level 145 mmol/L Potassium Level 3.5 mmol/L Chloride Level 111 mmol/L Carbon Dioxide Level 27 mmol/L Anion Gap 7.0 mmol/L Blood Urea Nitrogen 10 mg/dl Creatinine 0.69 mg/dl Est Creatinine Clear Calc Drug Dose 138.6 ml/min Estimated GFR () 145.6 Estimated GFR (Non- 125.6 BUN/Creatinine Ratio 13.9 Random Glucose 120 mg/dl Calcium Level 8.6 mg/dl Date/Time Source Procedure Growth Status 02/11/17 18:53 Blood Blood Culture Pending Received 02/11/17 18:48 Blood Blood Culture Pending Received Assessment & Plan Unresponsive Possible related to drug overdose Need to r/o seizure since blood was found in his lips CT head showed No acute intracranial pathology. Found the gabapentin bottle was empty I called pharmacy and said that Gabapentin was refilled on 01/17 Also Pt has been taking phenibug' he has been taking more Case discussed with poison control recommended symptoms management EEG pending Will continue monitor closely ECHO done * This was essentially a normal study. * All chambers of normal size and function * Normal bi-ventricular function * No significant valvualr pathology. Acute hypoxemic respiratory failure possibly from aspiration pneumonitis CXR showed no evidence of focal pulmonary consolidation WBC trending down, afebrile On Unasyn will repeat cxr and consider to d/c abx Hx of substance abuse Follow with methadone clinic for opioid abuse Case discussed with Dr. Yu from pain management that suggested to decrease the methadone dose on discharge Will notify the methadone clinic Anxiety On gabapentin and wellbutrin has been taking phenibut On ativan prn Advised pt to avoid taking medication online Psych consulted Elevated WBC Possible steroid vs reactivity or aspiration Afebrile WBC trending down On Unasyn Chronic anemia, Stable DVT Px on SCDs CODE STATUS FULL CODE. Consultants: Psych Current Inpatient Medications: Current Inpatient Medications Medications (Trade) Dose Ordered Sig/Marcelino Route Start Time Stop Time Status Last Admin Dose Admin Acetaminophen (Tylenol Tab) 650 mg Q4H PRN PO 02/11/17 20:30 03/13/17 20:29 Lorazepam (Ativan Inj) 0.5 mg Q4H PRN IV 02/11/17 20:30 03/13/17 20:29 Ondansetron HCl (Zofran Inj) 4 mg Q6H PRN IV 02/11/17 20:30 03/13/17 20:29 02/11/17 22:55 4 MG Oxycodone/ Acetaminophen (Percocet 5-325mg Tab) 1 tab Q6H PRN PO 02/11/17 20:30 02/25/17 20:29 Ketorolac Tromethamine (Toradol Inj) 30 mg Q6H PRN IV 02/11/17 20:30 02/16/17 20:29 Ibuprofen (Advil Tab) 400 mg Q6H PRN PO 02/11/17 20:30 03/13/17 20:29 Acetaminophen 650 mg/Empty Bag 65 ml @ 260 mls/hr Q6H PRN IV 02/11/17 20:30 03/13/17 20:29 Fluticasone Propionate (Flonase Nasal [place]) 2 sprays DAILY RUBI 02/12/17 09:00 03/14/17 08:59 02/12/17 08:06 2 SPRAYS Naloxone HCl 5 mg/ Sodium Chloride 112.5 ml @ 0 mls/hr Q0M PRN IV 02/11/17 20:30 03/13/17 20:29 Future Hold Ipratropium Ponder (Atrovent 0.02% 0.5MG/2.5ML Neb) 0.5 mg Q4H PRN INH 02/12/17 00:45 03/14/17 00:44 Levalbuterol (Xopenex 1.25MG/ 0.5ML Neb) 1.25 mg Q4H PRN INH 02/12/17 00:45 03/14/17 00:44 Ampicillin Sodium/ Sulbactam Sodium (Consult) 1 ea UD PRN N/A 02/12/17 09:00 03/14/17 08:59 Lorazepam 1 mg/ Syringe 1 ml @ 0.5 mls/min UD PRN IV 02/12/17 02:00 03/14/17 01:59 Promethazine HCl 12.5 mg/Sodium Chloride 50.5 ml @ 204 mls/hr Q6H PRN IV 02/12/17 03:00 03/14/17 02:59 Lorazepam (Ativan Inj) 1 mg UD PRN IV 02/12/17 03:45 03/14/17 03:44 Ipratropium Ponder (Atrovent 0.02% 0.5MG/2.5ML Neb) 0.5 mg Q6R INH 02/12/17 09:00 03/14/17 08:59 02/12/17 07:10 0.5 MG Levalbuterol (Xopenex 1.25MG/ 0.5ML Neb) 1.25 mg Q6R INH 02/12/17 09:00 03/14/17 08:59 02/12/17 07:10 1.25 MG Ampicillin Sodium/ Sulbactam Sodium 3000 mg/Sodium Chloride 108 ml @ 216 mls/hr Q6H IV 02/12/17 05:00 02/19/17 04:59 02/12/17 12:01 216 MLS/HR Lactated Ringer's 1,000 ml @ 75 mls/hr [id number] ONCE IV 02/12/17 08:00 03/13/17 19:44 02/12/17 08:07 75 MLS/HR
--- NOTE | 2017-02-12 14:14 | EEG Procedure Note ---
EEG Procedure Note Date of Service Feb 12, 2017. Start / End Times Start Time: 1124 End Time: [address] Kelley History 31 yea old with probable overdose and suspected seizure Home Medication List Scheduled Albuterol Hfa (Ventolin Hfa), 2-4 PUFFS INH QID Bupropion Hcl (Wellbutrin Sr), 200 MG PO QAM Fluticasone Propionate (Nasal) (Flonase Allergy Relief), 2 SPRAYS RUBI DAILY Gabapentin (Gabapentin), 600 MG PO TID Methadone HCl (Methadone HCl), 120 ML PO DAILY Oxybutynin Chloride (Ditropan), 5 MG PO TID Paroxetine (Paxil), 40 MG PO DAILY Quetiapine Fumarate (Seroquel), 50 MG PO BID Scheduled PRN Dicyclomine Hcl (Dicyclomine Hcl), 10 MG PO QID PRN for GI Upset Ibuprofen (Motrin), 400 MG PO TID PRN for Pain Inpatient Medication List Current Inpatient Medications Medications (Trade) Dose Ordered Sig/Marcelino Route Start Time Stop Time Status Last Admin Dose Admin Acetaminophen (Tylenol Tab) 650 mg Q4H PRN PO 02/11/17 20:30 03/13/17 20:29 Lorazepam (Ativan Inj) 0.5 mg Q4H PRN IV 02/11/17 20:30 03/13/17 20:29 02/12/17 12:49 0.5 MG Ondansetron HCl (Zofran Inj) 4 mg Q6H PRN IV 02/11/17 20:30 03/13/17 20:29 02/11/17 22:55 4 MG Oxycodone/ Acetaminophen (Percocet 5-325mg Tab) 1 tab Q6H PRN PO 02/11/17 20:30 02/25/17 20:29 Ketorolac Tromethamine (Toradol Inj) 30 mg Q6H PRN IV 02/11/17 20:30 02/16/17 20:29 Ibuprofen (Advil Tab) 400 mg Q6H PRN PO 02/11/17 20:30 03/13/17 20:29 Acetaminophen 650 mg/Empty Bag 65 ml @ 260 mls/hr Q6H PRN IV 02/11/17 20:30 03/13/17 20:29 Fluticasone Propionate (Flonase Nasal [place]) 2 sprays DAILY RUBI 02/12/17 09:00 03/14/17 08:59 02/12/17 08:06 2 SPRAYS Naloxone HCl 5 mg/ Sodium Chloride 112.5 ml @ 0 mls/hr Q0M PRN IV 02/11/17 20:30 03/13/17 20:29 Future Hold Ipratropium [place] (Atrovent 0.02% 0.5MG/2.5ML Neb) 0.5 mg Q4H PRN INH 02/12/17 00:45 03/14/17 00:44 Levalbuterol (Xopenex 1.25MG/ 0.5ML Neb) 1.25 mg Q4H PRN INH 02/12/17 00:45 03/14/17 00:44 Ampicillin Sodium/ Sulbactam Sodium (Consult) 1 ea UD PRN N/A 02/12/17 09:00 03/14/17 08:59 Lorazepam 1 mg/ Syringe 1 ml @ 0.5 mls/min UD PRN IV 02/12/17 02:00 03/14/17 01:59 Promethazine HCl 12.5 mg/Sodium Chloride 50.5 ml @ 204 mls/hr Q6H PRN IV 02/12/17 03:00 03/14/17 02:59 Lorazepam (Ativan Inj) 1 mg UD PRN IV 02/12/17 03:45 03/14/17 03:44 Ipratropium [place] (Atrovent 0.02% 0.5MG/2.5ML Neb) 0.5 mg Q6R INH 02/12/17 09:00 03/14/17 08:59 02/12/17 07:10 0.5 MG Levalbuterol (Xopenex 1.25MG/ 0.5ML Neb) 1.25 mg Q6R INH 02/12/17 09:00 03/14/17 08:59 02/12/17 07:10 1.25 MG Ampicillin Sodium/ Sulbactam Sodium 3000 mg/Sodium Chloride 108 ml @ 216 mls/hr Q6H IV 02/12/17 05:00 02/19/17 04:59 02/12/17 12:01 216 MLS/HR Lactated Ringer's 1,000 ml @ 75 mls/hr [id number] ONCE IV 02/12/17 08:00 03/13/17 19:44 02/12/17 08:07 75 MLS/HR Description This is a 21 electrode EEG with a single channel dedicated to limited EKG. The electrodes were placed in accordance with the International 10-20 system. Interpretation The predominate background activity consisted of an irregular 6 Hz activity, of up to 75 microvolts in amplitude, seen over all head regions symmetrically. This activity does not attenuate with eye opening or alerting procedures. A mild amount of muscle and movement activity contaminated the recording without hindering interpretation to any significant degree. Photic stimulation and hyperventilation were not performed on the bedside, routine EEG. No focal abnormalities or potentially epileptogenic activity was noted during the study. In summary, this is an abnormal EEG, slowing generalized slowing, without focal abnormalities or potentially epileptogenic activity Clinical Correlation The EEG findings correlate with a moderate encephalopathy, which could be due to a wide variety of causes and clinical correlation is required. A previous seizure cannot be ruled out
[2017-02-12 14:43] LABS: HEMATOCRIT 31.8 % (42-52); MEAN CELL VOLUME 92.7 fL (80-100); MEAN CORPUSCULAR HEMOGLOBIN 29.7 pg (25-34); MEAN CORPUSCULAR HGB CONC 32.1 g/dl (32-36); MEAN PLATELET VOLUME 10.4 fL (7.4-10.4); PLATELET COUNT 235 K/uL (130-400); RED BLOOD COUNT 3.43 M/uL (4.7-6.1); WHITE BLOOD COUNT 12.63 K/uL (4.8-10.8)
[2017-02-13] MEDS: LORAZEPAM 2 MG/ML 1 ML VIAL IV PRN (02:20)
[2017-02-13 03:40] VITALS: BP 117/68; PULSE 63; TEMP 37.1; O2SAT 96
[2017-02-13 04:00] VITALS: O2SAT 96
[2017-02-13] MEDS: AMPICILLIN/SULBACTAM SOD INJ 3,000 MG in SODIUM CHLORIDE 0.9% 100ML 100 ML IV SCH ×2 (05:32→12:27)
[2017-02-13 07:30] LABS: BASO % 0.1 %; BASO ABS # 0.01 K/uL (0-0.2); COMPLETE YES; EOS % 0.5 %; IG% 0.2 %; LYMPH % 15.6 %; MEAN CELL VOLUME 89.8 fL (80-100); MEAN CORPUSCULAR HEMOGLOBIN 30.5 pg (25-34); MEAN PLATELET VOLUME 10.9 fL (7.4-10.4); MONO % 9.6 %; PLATELET COUNT 218 K/uL (130-400); RED BLOOD COUNT 3.34 M/uL (4.7-6.1); WHITE BLOOD COUNT 8.33 K/uL (4.8-10.8)
[2017-02-13 07:42] VITALS: BP 120/84; PULSE 89; TEMP 37; O2SAT 95
[2017-02-13] MEDS: IPRATROPIUM BROMIDE NEB SOLN 0.02% 2.5 ML VIAL INH SCH ×2 (07:43→14:20)
[2017-02-13] MEDS: LEVALBUTEROL 1.25MG/0.5ML NEB INH SCH ×2 (07:44→14:20)
[2017-02-13 08:15] LABS: BLOOD UREA NITROGEN 6 mg/dl (7-18); BUN/CREATININE RATIO 10.2 (10-20); CALCIUM 8.4 mg/dl (8.5-10.1); CARBON DIOXIDE 31 mmol/L (21-32); CHLORIDE 105 mmol/L (98-107); CREATININE 0.58 mg/dl (0.60-1.40); GLUCOSE 110 mg/dl (70-99); POTASSIUM 2.8 mmol/L (3.5-5.1); SODIUM 140 mmol/L (136-145)
[2017-02-13] MEDS ORDERED: POTASSIUM CHLORIDE 20 MEQ TABCR PO ONE (09:15)
--- NOTE | 2017-02-13 10:28 | Progress Note ---
Medicine Progress Note Date & Time of Visit: Feb 13, 2017 at 10:05. Subjective Pt was seen and examined sitting in bed with no distress Pt said that he did not sleep well last night he said that he was up thinking Pt said that a typical day for him, he usually stays in the house, watch TV, plays in the computer and walks his dog he said that he does not have any friend, or a partner or a job he said that he is afraid to get a job because he thinks that he would fail denies any suicidal thought, chest pain, palpitation and SOB Objective Last 8 Hrs Date Time Temp Pulse Resp B/P (MAP) Pulse Ox O2 Delivery O2 Flow Rate FiO2 02/13/17 08:00 Room Air 02/13/17 07:42 37.0 89 17 120/84 (96) 95 Room Air 02/13/17 04:00 96 Room Air 4.0 02/13/17 03:40 37.1 63 18 117/68 (84) 96 Room Air Physical Exam: General- No acute distress, very anxious Head- atraumatic Eyes- PERRL, EOMI ENT- oropharynx clear Neck- supple, no JVD Lungs-No wheezing Heart- regular rhythm; no murmur Abdomen- normal bowel sounds, soft Extremities- no pretibial edema, no calf tenderness Neuro- alert, oriented x 3; PERRL, EOMI; no facial palsy; no dysarthria; motor 5 /5 bilaterally Skin- warm & dry Laboratory Results: Last 24 Hours Test 02/12/17 14:29 02/13/17 06:24 White Blood Count 12.63 K/uL 8.33 K/uL Red Blood Count 3.43 M/uL 3.34 M/uL Hemoglobin 10.2 g/dL 10.2 g/dL Hematocrit 31.8 % 30.0 % Mean Corpuscular Volume 92.7 fL 89.8 fL Mean Corpuscular Hemoglobin 29.7 pg 30.5 pg Mean Corpuscular Hemoglobin Concent 32.1 g/dl 34.0 g/dl RDW Standard Deviation 44.1 fL 43.0 fL RDW Coefficient of Variation 13.2 % 13.1 % Platelet Count 235 K/uL 218 K/uL Mean Platelet Volume 10.4 fL 10.9 fL Neutrophils (%) (Auto) 74.0 % Lymphocytes (%) (Auto) 15.6 % Monocytes (%) (Auto) 9.6 % Eosinophils (%) (Auto) 0.5 % Basophils (%) (Auto) 0.1 % Neutrophils # (Auto) 6.16 K/uL Lymphocytes # (Auto) 1.30 K/uL Monocytes # (Auto) 0.80 K/uL Eosinophils # (Auto) 0.04 K/uL Basophils # (Auto) 0.01 K/uL Immature Granulocyte % (Auto) 0.2 % Immature Granulocyte # (Auto) 0.02 K/uL Sodium Level 140 mmol/L Potassium Level 2.8 mmol/L Chloride Level 105 mmol/L Carbon Dioxide Level 31 mmol/L Anion Gap 4.0 mmol/L Blood Urea Nitrogen 6 mg/dl Creatinine 0.58 mg/dl Est Creatinine Clear Calc Drug Dose 164.9 ml/min Estimated GFR () > 150.0 Estimated GFR (Non- 134.9 BUN/Creatinine Ratio 10.2 Random Glucose 110 mg/dl Calcium Level 8.4 mg/dl Assessment & Plan Unresponsive Possible related to drug overdose Need to r/o seizure since blood was found in his lips CT head showed No acute intracranial pathology. Found the gabapentin bottle was empty I called pharmacy and said that Gabapentin was refilled on 01/17 Also Pt has been taking phenibug' he has been taking more Case discussed with poison control yesterday recommended symptoms management EEG done showed slowing generalized slowing, without focal abnormalities or potentially epileptogenic activity Will continue monitor closely Resolved ECHO done * This was essentially a normal study. * All chambers of normal size and function * Normal bi-ventricular function * No significant valvualr pathology. Acute hypoxemic respiratory failure possibly from aspiration pneumonitis CXR showed no evidence of focal pulmonary consolidation WBC trending down to normal, afebrile asymptomatic procalcitonin WNL On Unasyn, will D/C Clinically stable Hx of substance abuse Follow with methadone clinic for opioid abuse Case discussed with Dr. Yu from pain management yesterday that suggested to decrease the methadone dose on discharge Methadone clinic was notified yesterday will resume methadone today Methadone decreases to 100ml Anxiety/Depression On gabapentin and wellbutrin has been taking phenibut On ativan prn inpatient Advised pt to avoid taking medication online denies any suicidal thought or any thought to harm himself or others. Psych consulted Discussed with nursing liaison to help him to get involved in group programs Hypokalemia K replaced Advised pt to increase potassium in diet monitor K Elevated WBC Possible steroid vs reactivity or aspiration Afebrile WBC trending down to normal Unasyn D/C Chronic anemia, Stable DVT Px on SCDs CODE STATUS FULL CODE. Disposition Will discharge home today if ok by psych Will need outpatient psych follow up Consultants: Psych Current Inpatient Medications: Current Inpatient Medications Medications (Trade) Dose Ordered Sig/Marcelino Route Start Time Stop Time Status Last Admin Dose Admin Acetaminophen (Tylenol Tab) 650 mg Q4H PRN PO 02/11/17 20:30 03/13/17 20:29 Lorazepam (Ativan Inj) 0.5 mg Q4H PRN IV 02/11/17 20:30 03/13/17 20:29 02/13/17 02:20 0.5 MG Ondansetron HCl (Zofran Inj) 4 mg Q6H PRN IV 02/11/17 20:30 03/13/17 20:29 02/11/17 22:55 4 MG Oxycodone/ Acetaminophen (Percocet 5-325mg Tab) 1 tab Q6H PRN PO 02/11/17 20:30 02/25/17 20:29 Ketorolac Tromethamine (Toradol Inj) 30 mg Q6H PRN IV 02/11/17 20:30 02/16/17 20:29 Ibuprofen (Advil Tab) 400 mg Q6H PRN PO 02/11/17 20:30 03/13/17 20:29 Acetaminophen 650 mg/Empty Bag 65 ml @ 260 mls/hr Q6H PRN IV 02/11/17 20:30 03/13/17 20:29 Fluticasone Propionate (Flonase Nasal [place]) 2 sprays DAILY RUBI 02/12/17 09:00 03/14/17 08:59 02/12/17 08:06 2 SPRAYS Naloxone HCl 5 mg/ Sodium Chloride 112.5 ml @ 0 mls/hr Q0M PRN IV 02/11/17 20:30 03/13/17 20:29 Future Hold Ipratropium [place] (Atrovent 0.02% 0.5MG/2.5ML Neb) 0.5 mg Q4H PRN INH 02/12/17 00:45 03/14/17 00:44 Levalbuterol (Xopenex 1.25MG/ 0.5ML Neb) 1.25 mg Q4H PRN INH 02/12/17 00:45 03/14/17 00:44 Ampicillin Sodium/ Sulbactam Sodium (Consult) 1 ea UD PRN N/A 02/12/17 09:00 03/14/17 08:59 Lorazepam 1 mg/ Syringe 1 ml @ 0.5 mls/min UD PRN IV 02/12/17 02:00 03/14/17 01:59 Promethazine HCl 12.5 mg/Sodium Chloride 50.5 ml @ 204 mls/hr Q6H PRN IV 02/12/17 03:00 03/14/17 02:59 Lorazepam (Ativan Inj) 1 mg UD PRN IV 02/12/17 03:45 03/14/17 03:44 Ipratropium [place] (Atrovent 0.02% 0.5MG/2.5ML Neb) 0.5 mg Q6R INH 02/12/17 09:00 03/14/17 08:59 02/12/17 14:17 0.5 MG Levalbuterol (Xopenex 1.25MG/ 0.5ML Neb) 1.25 mg Q6R INH 02/12/17 09:00 03/14/17 08:59 02/12/17 14:18 1.25 MG Ampicillin Sodium/ Sulbactam Sodium 3000 mg/Sodium Chloride 108 ml @ 216 mls/hr Q6H IV 02/12/17 05:00 02/19/17 04:59 02/13/17 05:32 216 MLS/HR Lactated Ringer's 1,000 ml @ 75 mls/hr [id number] ONCE IV 02/12/17 08:00 03/13/17 19:44 02/12/17 08:07 75 MLS/HR
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
[2017-02-13] MEDS ORDERED: METHADONE ORAL SOLN 2 MG/1ML PO ONE (12:00)
[2017-02-13 12:18] VITALS: BP 123/82; PULSE 78; TEMP 36.6; O2SAT 97
[2017-02-13] MEDS: FLUTICASONE PROPIONATE NA SPR 16 GM BTL NAE SCH (12:32)
[2017-02-13] MEDS ORDERED: MTHL PO (15:19)
--- NOTE | 2017-02-13 15:33 | Discharge Instructions ---
Discharge Instructions Date of Service Feb 13, 2017. Admission Reason for Admission: Overdose Discharge Discharge Diagnosis / Problem: Unresponsive, Hx of substance abuse, Anxiety/ Depression, Hypokalemia Discharge Goals Goal(s): Decrease discomfort, Improve function, Improve disease control Activity Recommendations Activity Limitations: resume your previous activity (as tolerated) . Instructions / Follow-Up Instructions / Follow-Up follow up appointment with your primary care provider Dr. Castillo on Feb 16 @ 1: 45 pm Follow up with psychiatry Follow up with the methadone clinic Check potassium in 1 week Increase potassium in diet such as banana Methadone decreased to 100 ml daily Wellbutrin discontinued Discontinue Phenibut supplement Will decreased gabapentin to 300mg three times daily Your physician will taper you off the gabapentin in the next few weeks Please avoid taking any medication online Please notify your physician with new substances that you start Seek medical attention or call 911 if you develop any suicidal thoughts Current Hospital Diet Patient's current hospital diet: Regular Diet Discharge Diet Recommended Diet: Regular Diet Pending Studies Studies pending at discharge: no Medical Emergencies . Who to Call and When: Medical Emergencies: If at any time you feel your situation is an emergency, please call 911 immediately. . Non-Emergent Contact Non-Emergency issues call your: Primary Care Provider Call Non-Emergent contact if: you have any medication questions . . "Provider Documentation" section prepared by Jay Jovel. . VTE Core Measure Inpt VTE Proph given/why not?: SCD's [place] Drug Monitoring Program Search Results: patient reviewed within database, see additional documentation (called pharmacy to verify meds. )
[2017-02-13 15:35] VITALS: BP 123/82; PULSE 78; TEMP 36.6; O2SAT 97
[2017-02-13] MEDS ORDERED: NRN/300 PO (15:35)
[2017-02-13] MEDS ORDERED: NURSING VERBAL MED ORDER ONE ×2 (15:45→16:15)
[2017-02-13] MEDS ORDERED: GABAPENTIN 100 MG CAP PO STA (15:46)
--- NOTE | 2017-02-16 00:30 | Discharge Summary ---
Discharge Summary Date of Service Feb 16, 2017. Discharge Summary Admission Date: Feb 11, 2017 at 20:13 Discharge Date: Feb 13, 2017 Discharge Disposition: Home Principal Diagnosis: Unresponsive Secondary Diagnoses/Problems: Hx of substance abuse Anxiety/Depression Hypokalemia Acute hypoxemic respiratory failure Procedures: ECHO Interpretation Summary * Name: KOLBY LING Study Date: 02/12/2017 07:28 AM BP: 115/73 mmHg * Patient [place] [facility] [place]S\\[id number]\\[id number]\\[id number] HR: 104 * : 1985 (M/d/yyyy) Gender: Male Height: 66 in * Age: 31 yrs Ethnicity: [place] Weight: 164 lb * Ordering Physician: Radames Kelley * Referring Physician: Self, Referred * Performed By: Héctor Mckeon RCS * * Reason For Study: Syncope * BSA: 1.8 m2 * This was essentially a normal study. * All chambers of normal size and function * Normal bi-ventricular function * -- Conclusions -- * This was essentially a normal study. * All chambers of normal size and function * Normal bi-ventricular function * No significant valvualr pathology. Procedure Details * A complete two-dimensional transthoracic echocardiogram was performed (2D, M- mode, Doppler and color flow Doppler). Left Ventricle * The left ventricle is normal in size. * Ejection Fraction = >70 %. * Left ventricular systolic function is normal. Right Ventricle * The right ventricle is normal size. * The right ventricular systolic function is normal. Atria * The left atrial size is normal. * Right atrial size is normal. * The interatrial septum is intact with no evidence for an atrial septal defect. Mitral Valve * The mitral valve is normal in structure and function. Tricuspid Valve * The tricuspid valve is normal in structure and function. Aortic Valve * The aortic valve is normal in structure and function. Pulmonic Valve * The pulmonic valve is not well seen, but is grossly normal. * There is no significant pulmonary regurgitation. Great Vessels * The aortic root and proximal ascending aorta are normal sized. Pericardium/Pleural * There is no pericardial effusion. CT OF THE CERVICAL SPINE CLINICAL HISTORY: Neck pain. Overdose. Change in mental status. COMPARISON STUDY: 08/05/2007 CT DOSE: 1006.55 mGy.cm TECHNIQUE: CT scan of the cervical spine was performed from the skull base to the thoracic inlet. Images are reviewed in the axial, sagittal, and coronal planes. IV contrast was not administered for this examination. A dose lowering technique was utilized adhering to the principles of ALARA. FINDINGS: The visualized portions of the lung apices reveal no evidence of pneumothorax. The prevertebral soft tissues are normal. No fractures or subluxations are visualized. There are subtle ill-defined nodular opacities within the left lung apex, likely inflammatory/postinflammatory. IMPRESSION: 1. No evidence of acute fracture or traumatic subluxation 2. Subtle ill-defined nodular opacities within the left lung apex likely inflammatory/postinflammatory Electronically signed by: Saud Mccoy M.D. 02/11/2017 6:05 PM Dictated Date/Time: 02/11/2017 6:01 PM HEAD WITHOUT CONTRAST (CT) CLINICAL HISTORY: 31 years-old Male presenting with AMS. TECHNIQUE: Multidetector CT imaging of the head was performed without the use of intravenous contrast. IV contrast: None. A dose lowering technique was used consistent with the principles of ALARA (as low as reasonably achievable). COMPARISON: 11/29/2007. CT DOSE (mGy.cm): The estimated cumulative dose is 1006.[address] C-spine. FINDINGS: Captain Waiter/Waitress topogram: Unremarkable. Ventricles and sulci normal in size. Brain parenchyma normal in appearance with preserved mena-white differentiation. No mass effect or midline shift. No hemorrhage or acute territorial infarct. No extra-axial fluid collection. Paranasal sinuses and mastoid air cells clear. Calvarium intact. IMPRESSION: 1. No acute intracranial pathology. Electronically signed by: Ozzy Michelle M.D. 02/11/2017 6:03 PM Dictated Date/Time: 02/11/2017 6:01 PM Patient Name: KOLBY LING Unit Number: [id number] Dictated: 02/11/171733 Transcribed: 02/11/171733 ARG Printed Date/Time: [~ rep prt dt]/[~ rep prt tm] [~ rep ct labl] - [~ rep ct ivnm] [facility] [place] [address] Dictated: 02/11/171733 Transcribed: 02/11/17 1734 ARG Printed Date/Time: [~ rep prt dt]/[~ rep prt tm] [~ rep ct labl] - [~ rep ct ivnm] CHEST ONE VIEW PORTABLE CLINICAL HISTORY: Overdose COMPARISON STUDY: 06/20/2014 FINDINGS: There is a poor inspiration. Prominence of interstitial markings may be secondary to hypoventilatory study. There is no focal pulmonary consolidation. There are no pleural effusions. There is no pneumothorax.[ IMPRESSION: 1. Suboptimal inspiration which may explain the prominence of the interstitial markings. No evidence of focal pulmonary consolidation Electronically signed by: Saud Mccoy M.D. 02/11/2017 5:35 PM Dictated Date/Time: 02/11/2017 5:34 PM Consultations: Psych Medication Reconciliation Changed Medications: Gabapentin (Neurontin) 300 Mg Cap 1 CAP PO TID, #9 CAP 0 Refills (Changed from: Gabapentin 600 Mg Tab 600 Mg PO TID #30 TAB) Methadone HCl (Methadone HCl) 1 Mg/1 Ml Soln 100 ML PO DAILY for 30 Days (Changed from: 120 ML) Continued Medications: Albuterol Hfa (Ventolin Hfa) 200 Puffs/34798 Mcg Aers 2-4 PUFFS INH QID, #1 INHALER Dicyclomine Hcl (Dicyclomine Hcl) 10 Mg Cap 10 MG PO QID PRN for GI Upset, CAP 3 Refills Fluticasone Propionate (Nasal) (Flonase Allergy Relief) 50 Mcg/Act Spr 2 SPRAYS RUBI DAILY Ibuprofen (Motrin) 400 Mg Tab 400 MG PO TID PRN for Pain, TAB PRN Oxybutynin Chloride (Ditropan) 5 Mg Tab 5 MG PO TID, TAB Paroxetine (Paxil) 40 Mg Tab 40 MG PO DAILY, #30 Quetiapine Fumarate (Seroquel) 50 Mg Tab 50 MG PO BID, #60 Discontinued Medications: Bupropion Hcl (Wellbutrin Sr) 200 Mg Tab 200 MG PO QAM, #30 Admission Information HPI (per Admitting provider): CHIEF COMPLAINT: Possible overdose as per records. HISTORY OF PRESENT ILLNESS: History obtained from the patient's mother, ER physician, records. Unable to obtain from patient secondary to obtunded state. Medical history significant for mood disorder, ADHD, anxiety disorder, hx substance abuse/drug dependence as per records, asthma, hx avascular necrosis as per records, chronic anemia (baseline hemoglobin 13). Recent confinement in September 2014 for benzo withdrawal. Recommendation was to taper off methadone. Patient discharged to [facility] rehab. Patient seen at PCP's office a few days ago for tooth pain on the right side. Impression was dental infection. The patient prescribed penicillin and ibuprofen. Patient's mother left the patient in a well state at home this morning to go to work. When she came back in the afternoon, she found the patient on the floor, bleeding from the mouth, possibly bit tongue, Minimally responsive but responds to loud verbal stimulation. Empty bottle of Neurontin noted on the floor. At the Emergency Room, some response to Narcan, Narcan drip started. Patient also received vancomycin and Unasyn in the ER w/ incidental note of infiltrates on lung apex on CT neck imaging. Patient's mother unaware of any current personal or chronic pain issues. As per patient's mom, she knows her son takes methadone for some "trouble in his head". She would like him to get off his many medications. Physical Exam (per Admitting): PHYSICAL EXAMINATION: VITAL SIGNS: Blood pressure noted to be 131/99, pulse rate 110, RR 16, temperature 37.9, sats 95 on 4 liters. GENERAL: Noted to be obtunded. No respiratory distress. SKIN: Pallor. HEENT: Pale palpebral conjunctivae. Dry mucosa. Nasal cannula in place. NECK: No JVD. Supple. CHEST: Decreased effort. HEART: Tachycardic. ABDOMEN: Soft. EXTREMITIES: No edema, no tenderness. NEUROLOGIC: Obtunded, miotic pupils. Hospital Course Unresponsive Possible related to drug overdose Need to r/o seizure since blood was found in his lips CT head showed No acute intracranial pathology. Found the gabapentin bottle was empty I called pharmacy and said that Gabapentin was refilled on 01/17 Also Pt has been taking phenibug' he has been taking more Case discussed with poison control yesterday recommended symptoms management EEG done showed slowing generalized slowing, without focal abnormalities or potentially epileptogenic activity Will continue monitor closely Resolved ECHO done * This was essentially a normal study. * All chambers of normal size and function * Normal bi-ventricular function * No significant valvualr pathology. Acute hypoxemic respiratory failure possibly from aspiration pneumonitis CXR showed no evidence of focal pulmonary consolidation WBC trending down to normal, afebrile asymptomatic procalcitonin WNL On Unasyn, will D/C Clinically stable Hx of substance abuse Follow with methadone clinic for opioid abuse Case discussed with Dr. Yu from pain management yesterday that suggested to decrease the methadone dose on discharge Methadone clinic was notified yesterday will resume methadone today Methadone decreases to 100ml Anxiety/Depression On gabapentin and wellbutrin has been taking phenibut On ativan prn inpatient Advised pt to avoid taking medication online denies any suicidal thought or any thought to harm himself or others. Psych consulted Discussed with nursing liaison to help him to get involved in group programs Hypokalemia K replaced Advised pt to increase potassium in diet monitor K Elevated WBC Possible steroid vs reactivity or aspiration Afebrile WBC trending down to normal Unasyn D/C Chronic anemia, Stable DVT Px on SCDs CODE STATUS FULL CODE. Disposition Will discharge home today if ok by psych Will need outpatient psych follow up Total time spent on discharge = 35 minutes This includes examination of the patient, discharge planning, medication reconciliation, and communication with other providers. Discharge Instructions Discharge Instructions Date of Service Feb 13, 2017. Admission Reason for Admission: Overdose Discharge Discharge Diagnosis / Problem: Unresponsive, Hx of substance abuse, Anxiety/ Depression, Hypokalemia Discharge Goals Goal(s): Decrease discomfort, Improve function, Improve disease control Activity Recommendations Activity Limitations: resume your previous activity (as tolerated) . Instructions / Follow-Up Instructions / Follow-Up follow up appointment with your primary care provider Dr. Castillo on Feb 16 @ 1: 45 pm Follow up with psychiatry Follow up with the methadone clinic Check potassium in 1 week Increase potassium in diet such as banana Methadone decreased to 100 ml daily Wellbutrin discontinued Discontinue Phenibut supplement Will decreased gabapentin to 300mg three times daily Your physician will taper you off the gabapentin in the next few weeks Please avoid taking any medication online Please notify your physician with new substances that you start Seek medical attention or call 911 if you develop any suicidal thoughts Current Hospital Diet Patient's current hospital diet: Regular Diet Discharge Diet Recommended Diet: Regular Diet Pending Studies Studies pending at discharge: no Medical Emergencies . Who to Call and When: Medical Emergencies: If at any time you feel your situation is an emergency, please call 911 immediately. . Non-Emergent Contact Non-Emergency issues call your: Primary Care Provider Call Non-Emergent contact if: you have any medication questions . . "Provider Documentation" section prepared by Jay Jovel. . VTE Core Measure Inpt VTE Proph given/why not?: [facility]CD's [place] Drug Monitoring Program Search Results: patient reviewed within database, see additional documentation (called pharmacy to verify meds. ) Additional Copies To Preeti Castillo M.D. (MEDICAL) Piedad Breen D.O.
[2017-02-16 11:31] LABS: METHADONE METABOLITE 21100 NG/ML (CUTOFF=100); METHADONE VERIFIC 23000 NG/ML (CUTOFF=100)
== END 2017-02-13 17:14 | disposition home or self-care (01) | DRG 917 ==
LOC: C.ED 16:53 → C.2E 20:13 → ENRESERV 20:21
PROVIDERS: ADMIT Internal Medicine; ATTEND Internal Medicine
DX: T42.6X1A Poisoning by other antiepileptic and sedative-hypnotic drugs, accidental (unintentional), initial encounter (principal); G92 Toxic encephalopathy; F11.20 Opioid dependence, uncomplicated; J96.01 Acute respiratory failure with hypoxia; J45.909 Unspecified asthma, uncomplicated; F31.9 Bipolar disorder, unspecified; Z96.649 Presence of unspecified artificial hip joint; D64.9 Anemia, unspecified; F41.8 Other specified anxiety disorders; E87.6 Hypokalemia; Y92.019 Unspecified place in single-family (private) house as the place of occurrence of the external cause

== ENCOUNTER 2017-10-05 16:43 | Emergency (ER) | payer OTHER ==
[~2017-10-05] VITALS: Ht 162.6 cm; Wt 80.1 kg
[~2017-10-05 16:43] MED LIST changes: -ACET-1257 PO; -ALBUAER19 INH; +DICY10CA12 PO; -DOCU-94 PO; +DTR/5 PO; -ETOMIDATE 2 MG/ML 20 ML VIAL IV ONE; -FEXO1TAB46 PO; -FLUO10CA48 PO; -FLUO20CA35 PO; +FLUT0.15 NAE; -FLUT44AE INH; +IBUP-1459 PO; -IMD2X PO; +NRN/300 PO; -NRN600 PO; +PXL/40 PO; +SRQ/50 PO; +VNTHFA/IN INH
[2017-10-05 16:55] VITALS: Ht 162.6 cm; Wt 80.1 kg
[2017-10-05] MEDS ORDERED: IBUP-1451 PO (17:59)
[2017-10-05] MEDS ORDERED: ONDA4TAB10 SL (17:59)
[2017-10-05] MEDS ORDERED: AMOX875T PO (17:59)
[2017-10-05] MEDS ORDERED: ONDANSETRON 4MG OD TAB PO ONE (18:00)
--- NOTE | 2017-10-05 18:04 | EMERGENCY ROOM VISIT NOTE ---
History First contact with patient: 17:25 Chief Complaint: DENTAL PAIN Stated Complaint: INFECTION, ABCESS IN MOUTH HAVE FEVER/HEADACHE Nursing Triage Summary: patient with history of tooth infection. was given augementin 10 days worht and it got better. never followed and now has another infection of the upper left tooth History of Present Illness The patient is a 32 year old male who presents to the Emergency Room with complaints of left upper dental pain. The patient reports that he was recently treated with Augmentin antibiotics for dental infection. He last took Augmentin possibly 1.5 weeks ago. This was prescribed by [employer]. The patient reports that he does not have dental insurance, therefore has not tried to call a dentist. His pain has been worsening over the past few days. He is also experiencing fevers, chills and nausea. He has not noticed any facial swelling, difficulty swallowing or sinus congestion. He rates his discomfort a 3 out of 10. Review of Systems 10 system review was performed and was negative except for pertinent positives and negatives as indicated in history of present illness Past Medical/Surgical History Medical Problems: (1) Anxiety (2) Asthma (3) Bipolar disorder (4) Depression (5) Kidney stone (6) Methadone dependence (7) Total replacement of hip Family History Depression FH: cancer FH: hypertension Psychiatric condition Social History Smoking Status: Current Every Day Smoker Alcohol Use: occasionally Drug Use: other Marital Status: Housing Status: lives with family Occupation Status: unemployed Current/Historical Medications Scheduled Albuterol Hfa (Ventolin Hfa), 2-4 PUFFS INH QID Amoxicillin & Pot Clavulanate (Augmentin 875-125 mg), 1 TAB PO BID Fluticasone Propionate (Nasal) (Flonase Allergy Relief), 2 SPRAYS RUBI DAILY Gabapentin (Neurontin), 1 CAP PO TID Methadone HCl (Methadone HCl), 100 ML PO DAILY Ondasetron Odt (Zofran Odt), 4 MG SL Q6H Oxybutynin Chloride (Ditropan), 5 MG PO TID Paroxetine (Paxil), 40 MG PO DAILY Quetiapine Fumarate (Seroquel), 50 MG PO BID Scheduled PRN Dicyclomine Hcl (Dicyclomine Hcl), 10 MG PO QID PRN for GI Upset Ibuprofen (Motrin), 400 MG PO TID PRN for Pain Ibuprofen Tab (Motrin), 800 MG PO Q8H PRN for Pain Physical Exam Vital Signs Date Time Temp Pulse Resp B/P (MAP) Pulse Ox O2 Delivery O2 Flow Rate FiO2 10/05/17 18:36 36.9 98 18 127/77 97 10/05/17 16:55 37.6 114 20 132/79 94 Room Air Physical Exam CONSTITUTIONAL: Healthy and well nourished. Alert and oriented X 3 with positive affect. HEENT: Normocephalic, atraumatic. Pupils equal, round and reactive. No facial edema noted. Ears and nares are clear. No tenderness to palpation or percussion of the maxillary sinuses. OROPHARYNX: The patient has poor dentition. The left maxillary region shows several necrotic and decayed teeth. No obvious gingival erythema, fluctuance or pointing. No evidence for exam angina or retropharyngeal abscess. NECK: Full active range of motion without discomfort. LYMPHATICS: No facial or cervical chain adenopathy noted. RESPIRATORY: Clear to auscultation bilaterally with no wheezing, crackles, rhonchi or stridor. CARDIOVASCULAR: Regular rate and rhythm with no murmurs, rubs or gallops. INTEGUMENTARY: No rash or other significant dermatologic conditions noted. NEUROLOGIC: Facial sensations are intact. Medical Decision & Procedures Medications Administered Medications (Trade) Dose Ordered Sig/Marcelino Route Start Time Stop Time Status Last Admin Dose Admin Ondansetron HCl (Zofran Odt) 4 mg ONE ONCE PO 10/05/17 18:00 10/05/17 18:01 DC 10/05/17 18:15 4 MG ED Course Patient history and physical exam were performed. Nurse's notes were reviewed. Vital signs were reviewed. Temperature is 37.6C with a pulse rate of 114. I did offer to administer IV antibiotics, however the patient refused, concern for cost of treatment. He requested treatment with pills. The patient was administered Zofran 4 mg ODT for his current nausea, and will be prescribed Augmentin 875 mg twice daily 10 days, along with Motrin 800 mg at his request. The patient was also prescribed Zofran ODT as needed for nausea. The patient was provided contact information for Dr. Westbrook. He was instructed to return to the emergency department for any progressively worsening symptoms. The patient was happy with plan of care, voiced understanding of all discharge instructions, and rated his pain a 3 out of 10 at the time of discharge. Medical Decision Medication Reconcilliation Current Medication List: was personally reviewed by me Blood Pressure Screening Patient's blood pressure: Normal blood pressure Impression Primary Impression: Dental infection Departure Information Dispostion Home / Self-Care Prescriptions Ondasetron Odt (ZOFRAN ODT) 4 Mg Tab 4 MG SL Q6H for Nausea, #10 TAB Prov: Theodore Lynn PA 10/05/17 Ibuprofen Tab (MOTRIN) 800 Mg Tab 800 MG PO Q8H Y for Pain, #21 TAB For Initial Treatment Prov: Theodore Lynn PA 10/05/17 Amoxicillin & Pot Clavulanate (Augmentin 875-125 mg) 1 Tab Tab 1 TAB PO BID for 10 Days, #20 TAB Prov: Theodore Lynn PA 10/05/17 Referrals Piedad Breen D.O. LeClair,Konstantin Kaba D.M.D. Forms HOME CARE DOCUMENTATION FORM, IMPORTANT VISIT INFORMATION Patient Instructions My [facility] Additional Instructions Complete all Augmentin antibiotics as prescribed. Alternate ibuprofen 800 mg and Tylenol 1000 mg every 4 hours for more effective pain relief: Ibuprofen --4 HRS--> Tylenol --4 HRS--> ibuprofen --4 HRS--> Tylenol .... Follow-up with a dentist (Dr. Westbrook) for further definitive treatment.
[2017-10-05 18:36] VITALS: BP 127/77; PULSE 98; TEMP 36.9; O2SAT 97
== END 2017-10-05 18:34 | disposition home or self-care (01) ==
LOC: C.EDB 16:44 → C.EDD 18:34
DX: K04.7 Periapical abscess without sinus (principal); R11.0 Nausea; F41.8 Other specified anxiety disorders; J45.909 Unspecified asthma, uncomplicated; F17.200 Nicotine dependence, unspecified, uncomplicated; Z79.891 Long term (current) use of opiate analgesic; Z79.899 Other long term (current) drug therapy

== ENCOUNTER 2018-01-05 11:16 | Emergency (ER) | payer OTHER ==
[~2018-01-05] VITALS: Ht 162.6 cm; Wt 84.2 kg
[~2018-01-05 11:16] MED LIST changes: +IBUP-1451 PO; +ONDA4TAB10 SL
[2018-01-05 11:18] VITALS: TEMP 37.2
[2018-01-05] MEDS ORDERED: SODIUM CHLORIDE 0.9% 1000ML 1,000 ML IV STA (11:41)
[2018-01-05 12:01] VITALS: Ht 162.6 cm; Wt 84.2 kg
[2018-01-05] MEDS ORDERED: MTHL PO (12:06)
[2018-01-05] MEDS ORDERED: QUET1TAB30 PO (12:06)
[2018-01-05] MEDS ORDERED: NRN600 PO (12:06)
[2018-01-05] MEDS ORDERED: QUET1TAB34 PO (12:06)
--- NOTE | 2018-01-05 12:28 | DIAGNOSTIC IMAGING REPORT ---
CHEST ONE VIEW PORTABLE CLINICAL HISTORY: Edema. COMPARISON STUDY: Chest radiograph February 11, 2017. FINDINGS: Lung volumes are normal. No pneumothorax or pleural effusion is noted. There is no consolidation. Cardiac size is normal. There is no evidence for pulmonary edema. Appearance of the chest is unchanged. IMPRESSION: No acute cardiopulmonary findings. Electronically signed by: Solitario Rosa M.D. 01/05/2018 12:27 PM Dictated Date/Time: 01/05/2018 12:24 PM
[2018-01-05 12:34] LABS: BASO % 0.4 %; BASO ABS # 0.02 K/uL (0-0.2); EOS % 6.6 %; EOS ABS # 0.37 K/uL (0-0.5); HEMATOCRIT 34.4 % (42-52); HEMOGLOBIN 11.2 g/dL (14.0-18.0); IG# 0.01 K/uL (0.00-0.02); LYMPH % 30.8 %; LYMPH ABS # 1.72 K/uL (1.2-3.4); MEAN CELL VOLUME 91.7 fL (80-100); MEAN CORPUSCULAR HEMOGLOBIN 29.9 pg (25-34); MEAN CORPUSCULAR HGB CONC 32.6 g/dl (32-36); MEAN PLATELET VOLUME 10.3 fL (7.4-10.4); MONO ABS # 0.56 K/uL (0.11-0.59); NEUT ABS # 2.91 K/uL (1.4-6.5); PLATELET COUNT 235 K/uL (130-400); RED CELL DISTRIBUTION WIDTH CV 13.7 % (11.5-14.5); RED CELL DISTRIBUTION WIDTH SD 45.2 fL (36.4-46.3); WHITE BLOOD COUNT 5.59 K/uL (4.8-10.8)
[2018-01-05 12:45] LABS: PTT PATIENT 29.6 SECONDS (21.0-31.0)
[2018-01-05 12:56] LABS: ALBUMIN 3.8 gm/dl (3.4-5.0); CREATININE 0.84 mg/dl (0.60-1.40); POTASSIUM 3.8 mmol/L (3.5-5.1); TOTAL PROTEIN 8.2 gm/dl (6.4-8.2)
--- NOTE | 2018-01-05 13:20 | EMERGENCY ROOM VISIT NOTE ---
History First contact with patient: 11:29 Chief Complaint: SWELLING TO EXTREMITY Stated Complaint: SWOLLEN LEGS History of Present Illness The patient is a 32 year old male who presents to the Emergency Room with complaints of bilateral leg swelling since Tuesday. The patient states he initially noticed the swelling in the right leg, however yesterday noticed it in both. He reports swelling up to his ankles and is very concerned for possible infection. The patient states he has been using ice and elevation and is concerned for infection or clot due to a previous right hip replacement performed in 2010. The patient does report having all teeth pulled 1 month ago and denies complications. He states he was on Augmentin for 10 days. He states his appetite has been fine, but has not been drinking as much as normal. He denies any excessive use of caffeine. He states he has not been outside working or overly hot. The patient denies any history of leg swelling. He denies any redness, numbness, tingling, or fever. He denies any nausea, vomiting, body aches, or chills. He denies any chest pain or dyspnea. There have been no open wounds. Review of Systems A complete 10 point review of systems was reviewed with the patient with pertinent positives and negatives as per history of present illness. All else were negative. Past Medical/Surgical History Medical Problems: (1) Anxiety (2) Asthma (3) Bipolar disorder (4) Depression (5) Kidney stone (6) Methadone dependence (7) Total replacement of hip Family History Depression FH: cancer FH: hypertension Psychiatric condition Social History Smoking Status: Never Smoker Smokeless Tobacco Use: No Alcohol Use: occasionally Drug Use: other Marital Status: Housing Status: lives with family Occupation Status: unemployed Current/Historical Medications Scheduled Fluticasone Propionate (Nasal) (Flonase Allergy Relief), 2 SPRAYS RUBI DAILY Gabapentin (Gabapentin), 600 MG PO TID Methadone HCl (Methadone HCl), 115 ML PO DAILY Oxybutynin Chloride (Ditropan), 5 MG PO TID Paroxetine (Paxil), 40 MG PO DAILY Quetiapine Fumarate (Seroquel), 25 MG PO QAM Quetiapine Fumarate (Seroquel), 200 MG PO HS Scheduled PRN Albuterol Hfa (Ventolin Hfa), 2-4 PUFFS INH QID PRN for SOB/Wheezing Physical Exam Vital Signs Date Time Temp Pulse Resp B/P (MAP) Pulse Ox O2 Delivery O2 Flow Rate FiO2 01/05/18 13:07 89 18 139/97 95 Room Air 01/05/18 11:18 37.2 105 18 127/77 92 Room Air Physical Exam VITALS: Vitals are noted on the nurse's note and reviewed by myself. Vital signs stable. GENERAL: This is a 32-year-old white male, in no acute distress, nondiaphoretic , well-developed well-nourished. SKIN: The skin was without rashes, erythema, edema, or bruising. Minimal swelling of the bilateral feet without pitting edema. No erythema or open wounds. There is no tenting of the skin. Capillary reflex less than 2 seconds. HEAD: Normocephalic atraumatic. EARS: External auditory canals clear, tympanic membranes pearly mena without erythema or effusion bilaterally. EYES: Pupils equal round and reactive to light and accommodation. Conjunctivae without injection, sclerae without icterus. Extraocular movements intact. NOSE: Patent, turbinates without inflammation or discharge. No sinus tenderness. MOUTH: Mucous membranes moist. Tonsils are not enlarged. Pharynx without erythema or exudate. Uvula midline. Airway patent. Tongue does not deviate. NECK: Supple without nuchal rigidity. No lymphadenopathy. No thyromegaly. Cervical spine is nontender. No JVD. HEART: Regular rate and rhythm without murmurs gallops or rubs. LUNGS: Clear to auscultation bilaterally without wheezes, rales or rhonchi. No dullness to percussion. No retractions or accessory muscle use. ABDOMEN: Positive bowel sounds x 4. Normal tympanic percussion. Soft, nontender, without masses or organomegaly. Rivero sign negative. No guarding or rebound tenderness. MUSCULOSKELETAL: No muscle atrophy, erythema, or edema noted. Full range of motion without joint tenderness in all extremities. No tenderness to palpation. Normal gait. Strength 5/5 throughout. NEURO: Patient was alert and oriented to person place and time. Normal sensation to light and sharp touch. Deep tendon reflexes 2+ throughout. No focal neurological deficits. Medical Decision & Procedures ER Provider Diagnostic Interpretation: CHEST ONE VIEW PORTABLE CLINICAL HISTORY: Edema. COMPARISON STUDY: Chest radiograph February 11, 2017. FINDINGS: Lung volumes are normal. No pneumothorax or pleural effusion is noted. There is no consolidation. Cardiac size is normal. There is no evidence for pulmonary edema. Appearance of the chest is unchanged. IMPRESSION: No acute cardiopulmonary findings. Electronically signed by: Solitario Rosa M.D. 01/05/2018 12:27 PM Dictated Date/Time: 01/05/2018 12:24 PM BILATERAL LOWER EXTREMITY VENOUS DOPPLER CLINICAL HISTORY: Bilateral lower extremity edema. COMPARISON STUDY: No previous studies for comparison. TECHNIQUE: Sonography of the deep venous system of the bilateral lower extremities was performed. Compression and augmentation were evaluated. FINDINGS: The bilateral common femoral, superficial femoral and popliteal veins were compressible. Augmentation was normal. Flow was shown within the deep calf vessels. IMPRESSION: No evidence of deep venous thrombus within the bilateral lower extremities. Electronically signed by: Solitario Rosa M.D. 01/05/2018 1:35 PM Dictated Date/Time: 01/05/2018 1:34 PM Laboratory Results 01/05/18 12:20 Red Blood Count 3.75, Mean Corpuscular Volume 91.7, Mean Corpuscular Hemoglobin 29.9, Mean Corpuscular Hemoglobin Concent 32.6, Mean Platelet Volume 10.3, Neutrophils (%) (Auto) 52.0, Lymphocytes (%) (Auto) 30.8, Monocytes (%) (Auto) 10.0, Eosinophils (%) (Auto) 6.6, Basophils (%) (Auto) 0.4, Neutrophils # (Auto ) 2.91, Lymphocytes # (Auto) 1.72, Monocytes # (Auto) 0.56, Eosinophils # (Auto ) 0.37, Basophils # (Auto) 0.02 01/05/18 12:20 Test 01/05/18 12:20 White Blood Count 5.59 K/uL (4.8-10.8) Red Blood Count 3.75 M/uL (4.7-6.1) Hemoglobin 11.2 g/dL (14.0-18.0) Hematocrit 34.4 % (42-52) Mean Corpuscular Volume 91.7 fL (80-100) Mean Corpuscular Hemoglobin 29.9 pg (25-34) Mean Corpuscular Hemoglobin Concent 32.6 g/dl (32-36) Platelet Count 235 K/uL (130-400) Mean Platelet Volume 10.3 fL (7.4-10.4) Neutrophils (%) (Auto) 52.0 % Lymphocytes (%) (Auto) 30.8 % Monocytes (%) (Auto) 10.0 % Eosinophils (%) (Auto) 6.6 % Basophils (%) (Auto) 0.4 % Neutrophils # (Auto) 2.91 K/uL (1.4-6.5) Lymphocytes # (Auto) 1.72 K/uL (1.2-3.4) Monocytes # (Auto) 0.56 K/uL (0.11-0.59) Eosinophils # (Auto) 0.37 K/uL (0-0.5) Basophils # (Auto) 0.02 K/uL (0-0.2) RDW Standard Deviation 45.2 fL (36.4-46.3) RDW Coefficient of Variation 13.7 % (11.5-14.5) Immature Granulocyte % (Auto) 0.2 % Immature Granulocyte # (Auto) 0.01 K/uL (0.00-0.02) Prothrombin Time 10.5 SECONDS (9.0-12.0) Prothromb Time International Ratio 1.0 (0.9-1.1) Activated Partial Thromboplast Time 29.6 SECONDS (21.0-31.0) Partial Thromboplastin Ratio 1.1 Anion Gap 5.0 mmol/L (3-11) Est Creatinine Clear Calc Drug Dose 122.5 ml/min Estimated GFR () 133.3 Estimated GFR (Non- 115.0 BUN/Creatinine Ratio 5.7 (10-20) Calcium Level 9.0 mg/dl (8.5-10.1) Magnesium Level 2.0 mg/dl (1.8-2.4) Total Bilirubin 0.2 mg/dl (0.2-1) Aspartate Amino Transf (AST/SGOT) 32 U/L (15-37) Alanine Aminotransferase (ALT/SGPT) 34 U/L (12-78) Alkaline Phosphatase 93 U/L (45-117) Pro-B-Type Natriuretic Peptide 10 pg/ml (0-450) Total Protein 8.2 gm/dl (6.4-8.2) Albumin 3.8 gm/dl (3.4-5.0) Globulin 4.4 gm/dl (2.5-4.0) Albumin/Globulin Ratio 0.9 (0.9-2) Lyme Disease IgG Antibody NEG (NEG) Lyme Disease IgM Antibody NEG (NEG) Medications Administered Medications (Trade) Dose Ordered Sig/Marcelino Route Start Time Stop Time Status Last Admin Dose Admin Sodium Chloride 1,000 ml @ 999 mls/hr Q1H1M STAT IV 01/05/18 11:41 01/05/18 12:41 DC 01/05/18 12:24 999 MLS/HR ED Course The patient was seen and evaluated as above. IV access obtained, labs drawn. The patient was given IV normal saline solution. Imaging performed and reviewed by myself and radiologist as above. Labs reviewed by myself. I discussed the findings with the patient at bedside. Discharge instructions reviewed, the patient was discharged home in good condition. Medical Decision This is a 32-year-old male patient presents emergency department today complaining of swelling in bilateral lower extremities. The patient is not exhibiting any pitting edema on examination. Workup here in the emergency department did not reveal any DVT or obvious cardiopulmonary findings. The patient is mildly anemic, however this has improved and is stable since the patient's previous labs. Renal, hepatic function and electrolytes were without significant abnormality. BNP was normal. Coagulation factors negative. Lyme disease testing was negative. Suspect the patient's complaints of swelling are related to the heat, some mild dehydration, and inactivity. The patient states he has been sitting with his legs dangling more frequently lately than normal. He does have compression stockings at home, so I encouraged him to use these compression stockings to help with swelling. The patient was advised to drink more fluids and keep legs elevated and stay more active. Patient verbalized agreement and understanding. He was encouraged to follow-up with his PCP on Tuesday if he has not experienced any improvement in symptoms over the weekend. All questions are to the patient satisfaction prior to discharge. Differential diagnosis includes edema, dependent edema, heart failure, DVT, cellulitis, superficial thrombus, abscess, electrolyte or metabolic abnormality , cardiopulmonary abnormality, intra-abdominal abnormality, malignancy, and others The chart was completed utilizing [employer] Speech voice recognition software. Grammatical errors, random word insertions, pronoun errors, and incomplete sentences are an occasional consequence of this system due to software limitations, ambient noise, and hardware issues. Any formal questions or concerns about the content, text, or information contained within the body of this dictation should be directly addressed to the provider for clarification. Medication Reconcilliation Current Medication List: was personally reviewed by me Blood Pressure Screening Patient's blood pressure: Normal blood pressure Impression Primary Impression: Swelling of both lower extremities Departure Information Dispostion Home / Self-Care Condition GOOD Referrals Megha Dukes D.O. (PCP) Patient Instructions ED Leg Swelling Bilateral, My [facility] Additional Instructions You were seen in the emergency department today for swelling in both of her legs. As discussed, workup here in the emergency department was negative. I suspect this swelling is related to sitting for long periods of time with the legs dangling below you. Wear the compression stockings you have at home to help with the swelling. Elevate the legs as much as possible, especially while sitting. Ibuprofen(Motrin, Advil) may be used for fever or pain. Use 600mg every six hours as needed. Take with food. Avoid using more than 2400mg in a 24 hour period. Do not use 2400mg per day for more than three consecutive days without physician direction. Prolonged inappropriate use can lead to stomach upset or ulcers. This medication may help with the swelling. (AND/OR) Acetaminophen(Tylenol) may be used for fever or pain. Use 1000mg every six hours as needed. Avoid using more than 3000mg in a 24 hour period. Follow-up with your primary care provider if you are not experiencing improvement in her symptoms by Tuesday. Return to the emergency department for any significantly worsening swelling, chest pain, difficulty breathing, numbness or tingling, redness, fever, chills, nausea, vomiting, or other concerning symptoms.
--- NOTE | 2018-01-05 13:36 | DIAGNOSTIC IMAGING REPORT ---
BILATERAL LOWER EXTREMITY VENOUS DOPPLER CLINICAL HISTORY: Bilateral lower extremity edema. COMPARISON STUDY: No previous studies for comparison. TECHNIQUE: Sonography of the deep venous system of the bilateral lower extremities was performed. Compression and augmentation were evaluated. FINDINGS: The bilateral common femoral, superficial femoral and popliteal veins were compressible. Augmentation was normal. Flow was shown within the deep calf vessels. IMPRESSION: No evidence of deep venous thrombus within the bilateral lower extremities. Electronically signed by: Solitario Rosa M.D. 01/05/2018 1:35 PM Dictated Date/Time: 01/05/2018 1:34 PM
[2018-01-05 14:21] VITALS: BP 121/86; PULSE 85; O2SAT 92
== END 2018-01-05 14:21 | disposition home or self-care (01) ==
LOC: C.EDB 11:17
DX: M79.89 Other specified soft tissue disorders (principal); F41.9 Anxiety disorder, unspecified; J45.909 Unspecified asthma, uncomplicated; F32.9 Major depressive disorder, single episode, unspecified; F31.9 Bipolar disorder, unspecified; Z96.641 Presence of right artificial hip joint; Z79.899 Other long term (current) drug therapy

== ENCOUNTER 2021-11-11 19:04 | Observation (INO) ==
[2021-11-11] MEDS ORDERED: ONDANSETRON INJ 2 MG/ML 2 ML VIAL ONE (19:18)
[2021-11-11] MEDS ORDERED: ONDANSETRON INJ 2 MG/ML 2 ML VIAL IV STA (19:19)
[2021-11-11] MEDS ORDERED: LORazepam 1 MG in SYRINGE 0.5 ML IV STA (19:19)
[2021-11-11] MEDS ORDERED: SODIUM CHLORIDE 0.9% 1000ML 2,000 ML IV ONE (19:19)
[2021-11-11] MEDS ORDERED: LORazepam 2 MG/1 ML VIAL ONE (19:20)
[2021-11-11] MEDS ORDERED: FAMOTIDINE 20MG IV PUSH 20 MG/5 ML SYR IV STA (19:21)
[2021-11-11 19:36] LABS: Basophils # (auto) 0.01 K/uL (0-0.2); Basophils % (auto) 0.1 %; Eosinophils # (auto) 0.01 K/uL (0-0.5); Eosinophils % (auto) 0.1 %; Hemoglobin 12.5 g/dL (14.0-18.0); Immature Granulocytes # (auto) 0.08 K/uL (0.00-0.02); Immature Granulocytes % (auto) 0.5 %; Lymphocytes # (auto) 1.48 K/uL (1.2-3.4); Lymphocytes % (auto) 9.5 %; Mean Corpuscular Hemoglobin 31.9 pg (25-34); Mean Corpuscular Hgb Conc 32.1 g/dL (32-36); Mean Corpuscular Volume 99.5 fL (80-100); Mean Platelet Volume 9.7 fL (7.4-10.4); Monocytes # (auto) 0.43 K/uL (0.11-0.59); Monocytes % (auto) 2.8 %; Neutrophils # (auto) 13.56 K/uL (1.4-6.5); Platelet Count 381 K/uL (130-400); RDW Coefficient of Variation 13.9 % (11.5-14.5); RDW Standard Deviation 49.9 fL (36.4-46.3); Red Blood Count 3.92 M/uL (4.7-6.1); White Blood Count 15.57 K/uL (4.8-10.8)
[2021-11-11 19:49] LABS: Prothrombin Time 10.9 Seconds (9.0-12.0)
[2021-11-11 20:00] LABS: Albumin Globulin Ratio 1.3 (0.9-2); Albumin Level 4.9 gm/dl (3.4-5.0); BUN Creatinine Ratio 6.3 (10-20); Bilirubin,Total 0.2 mg/dl (0.2-1.0); Calcium 9.1 mg/dl (8.5-10.1); Est GFR (African American) 96.7 ml/min; Est GFR (Non-African American) 83.5 ml/min; Globulin 3.7 gm/dl (2.5-4.0); Magnesium 2.2 mg/dl (1.7-2.4); Phosphorus 3.2 mg/dl (2.5-4.9); Potassium 4.6 mmol/L (3.5-5.1); Total Protein 8.6 gm/dl (6.0-8.3)
[2021-11-11 20:03] LABS: Appearance Urine Clear (Clear); Bilirubin Urine Negative (Negative); Blood Urine Negative (Negative); Color Urine Yellow; Glucose Urine UA 3+ (Negative); Ketones Urine Negative (Negative); Leukocyte Esterase Urine Negative (Negative); Nitrite Urine Negative (Negative); Protein Urine Negative (Negative); Specific Gravity Urine 1.016 (1.000-1.030); Urobilinogen Urine Negative (Negative)
--- NOTE | 2021-11-11 20:14 | XRay Report ---
XR chest 1V portable CLINICAL HISTORY: Syncope. COMPARISON STUDY: Chest radiograph February 06, 2018. Chest CT July 19, 2018. FINDINGS: Lung volumes are normal. Lungs are clear. There is no pneumothorax or pleural effusion. Car diac size is normal. Mediastinal contours are normal. There is no evidence for pulmonary edema. IMPRESSION: No acute cardiopulmonary findings. ACT 112: Negative or not required by law. Electronically signed by: Solitario Rosa M.D. 11/11/2021 8:13 PM
[2021-11-11 20:44] LABS: Amphetamines+Metham, Urine Neg (Neg); Barbiturates, Urine Neg (Neg); Benzodiazepine, Urine Neg (Neg); Cocaine, Urine Neg (Neg); MDMA (Ecstacy), Urine Neg (Neg); Methadone, Urine Pos (Neg); Opiate, Urine Neg (Neg); Phencyclidine, Urine Neg (Neg)
[2021-11-11] MEDS ORDERED: PROMETHAZINE 25 MG/51 ML BAG IV STA (21:21)
[2021-11-11] MEDS ORDERED: ACETAMINOPHEN 1,000 MG/100 ML VIAL IV STA (21:21)
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
[2021-11-12] MEDS ORDERED: KETOROLAC TROMETHAMINE 15 MG/ML VIAL IV ONE (00:45)
[2021-11-12] MEDS ORDERED: QUEtiapine FUMARATE 25 MG TABLET PO STA (00:45)
[2021-11-12] MEDS ORDERED: QUEtiapine FUMARATE 25 MG TABLET PO PRN (04:00)
[2021-11-12] MEDS ORDERED: ONDANSETRON INJ 2 MG/ML 2 ML VIAL IV PRN (04:00)
[2021-11-12] MEDS ORDERED: ALBUTEROL HFA 8 GM INHALER INH PRN (04:00)
[2021-11-12] MEDS ORDERED: POLYETHYLENE (MIRALAX) 17 GM PACK PO PRN (04:00)
[2021-11-12] MEDS ORDERED: NITROGLYCERIN SL 0.4 MG/TAB TAB SL PRN (04:00)
[2021-11-12] MEDS: SODIUM CHLORIDE 0.9% 1000ML 1,000 ML IV SCH ×2 (04:19→14:35)
[2021-11-12] MEDS: LEVOTHYROXINE SODIUM 50 MCG TABLET PO SCH (05:59)
[2021-11-12] MEDS: PANTOprazole 40 MG TAB PO SCH (05:59)
[2021-11-12 07:03] LABS: Basophils # (auto) 0.01 K/uL (0-0.2); Basophils % (auto) 0.1 %; Hematocrit (blood only) 31.8 % (42-52); Hemoglobin 10.2 g/dL (14.0-18.0); Immature Granulocytes # (auto) 0.02 K/uL (0.00-0.02); Immature Granulocytes % (auto) 0.2 %; Lymphocytes # (auto) 1.14 K/uL (1.2-3.4); Lymphocytes % (auto) 13.8 %; Mean Corpuscular Hemoglobin 31.8 pg (25-34); Mean Corpuscular Hgb Conc 32.1 g/dL (32-36); Mean Corpuscular Volume 99.1 fL (80-100); Mean Platelet Volume 9.1 fL (7.4-10.4); Monocytes # (auto) 0.85 K/uL (0.11-0.59); Monocytes % (auto) 10.3 %; Neutrophils # (auto) 6.22 K/uL (1.4-6.5); Neutrophils % (auto) 75.6 %; Platelet Count 256 K/uL (130-400); RDW Coefficient of Variation 13.4 % (11.5-14.5); RDW Standard Deviation 48.5 fL (36.4-46.3); Red Blood Count 3.21 M/uL (4.7-6.1); White Blood Count 8.24 K/uL (4.8-10.8)
[2021-11-12 07:28] LABS: BUN Creatinine Ratio 7.2 (10-20); Calcium 7.9 mg/dl (8.5-10.1); Creatinine Clr Calc Pharmacy 114.1 ml/min; Est GFR (African American) 130.3 ml/min; Est GFR (Non-African American) 112.4 ml/min; Magnesium 2.1 mg/dl (1.7-2.4); Potassium 4.3 mmol/L (3.5-5.1)
[2021-11-12 08:03] LABS: Estimated Average Glucose 111 mg/dl; Hemoglobin A1C 5.5 % (4.5-5.6)
[2021-11-12] MEDS: METHADONE ORAL SOLN 2 MG/ML PO SCH (08:13)
[2021-11-12] MEDS: ACETAMINOPHEN 325 MG TAB PO PRN ×2 (08:15→21:03)
[2021-11-12] MEDS: GABAPENTIN 600 MG TAB PO SCH ×3 (08:16→21:03)
[2021-11-12] MEDS: FLUTICASONE PROPIONATE NA SPR 16 GM BTL SCH (08:16)
[2021-11-12] MEDS: MONTELUKAST SODIUM 10 MG TABLET PO SCH (08:17)
[2021-11-12] MEDS: QUEtiapine FUMARATE 25 MG TABLET PO SCH (08:17)
[2021-11-12] MEDS: PATIENT'S OWN CONTROLLED MED 1 PO SCH (08:18)
--- NOTE | 2021-11-12 10:01 | History and Physical Report ---
DATE OF ADMISSION: 11/12/2021. CHIEF COMPLAINT: Overdose. HISTORY OF PRESENT ILLNESS: A 36-year-old male with past medical history significant for prediabetes, mild intermittent asthma, irritable bowel syndrome, methadone maintenance therapy, history of opiate dependence, nicotine dependence, benzodiazepine dependence, bipolar disorder, ADHD. The patient is on methadone 115 mg p.o. daily. He says he is on this medication for the last 8 years. He follows with [facility] for his pain medication. Today he states he vaped some cannabis which was new, after that he was watching TV and does not know what happened. He lives with his mom. His mom found him unresponsive and she called 911. He says he did not pass out for long. It looks like EMS gave him Narcan and he had some withdrawal symptoms. In the ER, he was also given some Ativan. Currently, resting comfortably. Complains of headache. Denies any blurred visions, no earache, no runny nose, no sore throat, no cough, no fevers. No nausea, no vomiting, no chest pain, no shortness of breath, no abdominal pain. Normal bowel and bladder movements. Currently, while he is sleeping, his oxygen saturation is dropping down, requiring oxygen. the patient says that as his testosterone levels were low, he followed with endocrinology and they advised to get a sleep study. When he got a sleep study, was found that he has central sleep apnea and recommended BiPAP titration study and also thought that the central sleep apnea could be from methadone and advised to follow with pain management to cut down the dose, but the patient says he was told that Seroquel was causing the central sleep apnea. ALLERGIES: MILK. PAST MEDICAL HISTORY: As mentioned above. PAST SURGICAL HISTORY: Colonoscopy,, right hip revision surgery, total hip arthroplasty. MEDICATIONS: The patient is on albuterol 2 puffs inhalation q.i.d. p.r.n., Flonase 2 sprays intranasal daily, gabapentin as prescribed, levothyroxine 50 mcg p.o. daily, methadone 115 mg p.o. daily, montelukast 10 mg p.o. daily, omeprazole 20 mg p.o. daily, quetiapine 25 mg p.o. daily p.r.n., [id number] mg p.o. at bedtime, Seroquel 25 mg p.o. a.m. FAMILY HISTORY: Significant for father has heart disorder. SOCIAL HISTORY: . Last time he quit smoking was in 2010, history of heavy drinking, hx of opioid in 2006, clean since 2011, currently on methadone. Lives with his mother. REVIEW OF SYSTEMS: As per HPI. Rest of review of systems is negative. PHYSICAL EXAMINATION: GENERAL: The patient is of moderate build, not in acute distress. VITAL SIGNS: Temperature 37, pulse 83, respiratory rate 16, blood pressure 116/65, oxygen 95% on nasal cannula. HEENT: Pupils equal, round, and reactive to light. Oral mucosa moist. NECK: No JVD. No neck masses. CARDIOVASCULAR: S1 and S2 heard. Regular rate and rhythm. No murmur, no gallop. RESPIRATORY SYSTEM: Normal AP diameter. No accessory muscle use. No wheezing, no crackles. ABDOMEN: Soft. Bowel sounds are present, nontender, no distention. CENTRAL NERVOUS SYSTEM: Cranial nerves II-XII grossly intact, nonfocal. EXTREMITIES: No edema, no erythema. LABORATORY DATA: WBC 15, hemoglobin 12.5, hematocrit 39, platelets 381. PT 10.9, INR 1. Sodium 136, potassium 4.0, chloride 93, bicarbonate 29, BUN 7, creatinine 1.1, serum glucose 246, calcium 9.1, phosphorus 3.2, magnesium 2.2, total bilirubin 0.2, AST 29, ALT 35, alkaline phosphatase 99, lipase 36. Urinalysis negative. Drug screen positive for methadone, positive for marijuana. SARS-CoV-2 rapid test pending. IMAGING DATA: Chest x-ray, no acute cardiopulmonary findings. EKG: Normal sinus rhythm at a rate of 99, question ST depression in the anterior leads. ASSESSMENT AND PLAN: This is a 36-year-old male who presents with overdose. 1. Overdose: The patient is on methadone chronically for chronic pain at 115mg daily and he vaped the new cannabis the first time and he was unresponsive. Had withdrawal with narcan.. Currently resting comfortably, but while sleeping his oxygen is going down. He had sleep study which showed he has central sleep apnea, possibly from the methadone. He was advised to follow with pain management to cut down on the methadone. Will observe overnight in the hospital. Will consider pain management consult to help with his methadone.He also needs to be followed with sleep study for BiPAP titration study.May need nocturnal pulse ox study. 2. History of bipolar: Continue with Seroquel. 3. Hypothyroidism: Continue Synthroid. 4. Asthma: Continue his albuterol. 5. Deep venous thrombosis prophylaxis: Sequential compression devices for now. DISPOSITION: Observation. Admit to tele floor. Expect to discharge home and follow with family doctor. Job ID: [id number] [facility]
[2021-11-12] MEDS ORDERED: IBUPROFEN 600 MG TAB PO STA (10:36)
--- NOTE | 2021-11-12 12:55 | Electrocardiogram Report ---
Test Reason : Blood Pressure : / mmHG Vent. Rate : 099 BPM Atrial Rate : 099 BPM P-R Int : 158 ms QRS Dur : 094 ms QT Int : 362 ms P-R-T Axes : 045 066 047 degrees QTc Int : 464 ms Poor data quality, interpretation may be adversely affected Normal sinus rhythm Incomplete right bundle branch block Nonspecific ST abnormality Abnormal ECG When compared with ECG of 19-JUL-2018 15:30, ST now depressed in Anterior leads Inverted T waves have replaced nonspecific T wave abnormality in Anterior leads QT has shortened Confirmed by Silvio Kim ([id number]) on 11/12/2021 12:55:37 PM Referred By: REFERRED SELF Confirmed By:Gerardo Kim
[2021-11-12] MEDS: OXYBUTYNIN CHLORIDE 5 MG TAB PO SCH ×2 (13:59→21:03)
[2021-11-12] MEDS ORDERED: QUEtiapine FUMARATE 100 MG TABLET PO ONE (18:40)
[2021-11-12] MEDS ORDERED: HYDROCORTISONE 1% CRM 30 GM TUBE EXT PRN (20:39)
[2021-11-12] MEDS ORDERED: QUEtiapine FUMARATE 100 MG TABLET PO SCH (21:00)
--- NOTE | 2021-11-12 21:58 | Communication Note ---
Date of Service: November 12, 2021
[2021-11-13] MEDS: SODIUM CHLORIDE 0.9% 1000ML 1,000 ML IV SCH (04:06)
[2021-11-13] MEDS: LEVOTHYROXINE SODIUM 50 MCG TABLET PO SCH (05:33)
[2021-11-13] MEDS: PANTOprazole 40 MG TAB PO SCH (05:33)
[2021-11-13] MEDS: GABAPENTIN 600 MG TAB PO SCH ×2 (07:56→11:59)
[2021-11-13] MEDS: OXYBUTYNIN CHLORIDE 5 MG TAB PO SCH ×2 (07:56→11:59)
[2021-11-13] MEDS: MONTELUKAST SODIUM 10 MG TABLET PO SCH (07:56)
[2021-11-13] MEDS: METHADONE ORAL SOLN 2 MG/ML PO SCH (07:56)
[2021-11-13] MEDS: FLUTICASONE PROPIONATE NA SPR 16 GM BTL SCH (07:57)
[2021-11-13] MEDS: QUEtiapine FUMARATE 25 MG TABLET PO SCH (07:57)
[2021-11-13] MEDS: PATIENT'S OWN CONTROLLED MED 1 PO SCH (07:57)
--- NOTE | 2021-11-13 15:26 | Discharge Summary ---
Date of Service November 13, 2021 Discharge Data Allergies Allergy/AdvReac Type Severity Reaction Status Date / Time milk AdvReac Intermediate GI SYMPTOMS Verified 11/11/21 20:15 Consultations 11/11/21 23:42 ED Decision to Admit Stat Discharge Plan Discharge Items Patient Disposition: Home - Self-Care Reason For Visit: OVERDOSE Discharge Diagnosis: Syncope History of bipolar Hypothyroidism Asthma Activity: Resume your previous activity Non-emergency contact: Primary Care Provider Call non-emergency contact if: you have any medication questions Follow-up/Referrals: Megha Dukes DO [Primary Care Provider] - (Date & Time 11/17/2021 2:00 PM Provider Melanie Franco MD Department [facility] ) Diet: Regular Addtl Attending Provider Instructions: Follow up with your prmary care provider 11/17/2021 2:00 PM Melanie Franco MD Department [facility] Follow up with your pain management provider Follow up with your psychiatry provider Counseling on smoking cessation Fall precaution Seek medical attention if you develop any shortness, lethargy or syncope Stand-Alone Forms: My [facility], Smoking Cessation Medications and DC Order Prescriptions: New hydrocortisone 1 % Ointment 1 applic EXT BID Qty: 28.35 RF: 0 Continued quetiapine [Seroquel] 25 mg Tablet 25 mg PO QAM RF: 0 gabapentin 600 mg tablet See Rx Instructions .ROUTE .COMPLEX RF: 0 albuterol sulfate [Ventolin HFA] 90 mcg/actuation Hfa Aerosol Inhaler 2 - 4 puff INHALATION QID PRN (Reason: Shortness Of Breath) RF: 0 methadone 5 mg/5 mL Solution 115 mg PO DAILY RF: 0 quetiapine 25 mg tablet 25 mg PO DAILY PRN (Reason: Anxiety) RF: 0 quetiapine 300 mg tablet 150 mg PO HS RF: 0 levothyroxine 50 mcg tablet 50 mcg PO DAILYBB RF: 0 fluticasone propionate 50 mcg/actuation spray,suspension 2 spray INTRANASAL DAILY RF: 0 omeprazole 20 mg capsule,delayed release(DR/EC) 20 mg PO DAILYBB RF: 0 montelukast 10 mg tablet 10 mg PO DAILY RF: 0 oxybutynin chloride 5 mg tablet 5 mg PO TID RF: 0 Admission Data Admit Date/Time: 11/12/21 00:47 Attending Provider: Jay Jovel Admit Provider: Tommy Rodriguez Primary Care Provider: Megha Dukes Other Providers: Tommy Rodriguez
--- NOTE | 2021-11-13 15:43 | Communication Note ---
Date of Service: November 13, 2021 By CMS guidelines, a determination that the admission or continued stay is not medically necessary has been made by a member of the UR committee and a physi darren for this hospital stay, therefore a Code 44 will be completed and the Inpatient admission will be changed to outpatient. Anahy Light M.D.
[2021-11-13] MEDS ORDERED: predniSONE 10 MG TABLET PO ONE (15:45)
[2021-11-14 11:36] LABS: Marijuana Quant, GCMS Urine 1492 ng/mL (<5); Methadone, Ur Metabolite >10000 ng/mL (<100)
== END 2021-11-13 17:54 | disposition home or self-care (01) | DRG 918 ==
LOC: EDSEX → ED 19:04 → INTOOBSV 11-12 00:47 → 2S 11-12 00:47